=== PATIENT | female | born 1980 | race Caucasian/White ===

== ENCOUNTER 2019-07-19 11:15 | Outpatient (RCR) | payer OTHER, SELFPAY ==
--- NOTE | 2019-05-30 15:43 | PTOPEVAL ---
PHYSICAL THERAPY PLAN OF CARE UPDATE AND PROGRESS REPORT Thank you for referring this patient to [facility]. Fidelina will continue to be seen 1x/week for 4-6weeks as needed. Please review, sign, date and return this plan of care CARA. I agree with and certify that the following plan of care is medically necessary. Referring Physician Date Attending Provider: Laury Markham, MD Diagnosis right thoracic back pain Subjective Information Fidelina continues to feel as Query Text:As Reported By Patient/ though things are changing; Family she states she will feel stabbing in that spot in her back (near T9), but that it is more often a global heaviness across her back. She spent the last week doing prepartation work for the holidays and cleaning and she has been slightly more sore. She does feel as though there is improvement overall. Right Back Reported Pain Level 4 not so stabbing pain, but heavy feeling all across back Pain Score Pain Score 4: Self Report Scapular/Shoulder Bilateral Shoulder Flexion Strength 4+ Good + Shoulder Abduction Strength 4+ Good + Shoulder Medial Rotation Strength 5 Normal Shoulder Lateral Rotation Strength 5 Normal Posture Posture Evaluation View Posterior Shoulder Posture (R) Forward Scapula Posture (R) Depressed,(R) Tipped Arm Posture (L) Neutral,(R) Neutral Palpation spasms and trigger points to right posterior serratus; diaphragm spasms right greater than left; mild tightness to left scalenes especially at C1 ,2; Shoulder Special Tests Upper Limb Tension Test: Radial Negative Left,Negative Right Upper Limb Tension Test:Median Negative Left,Positive Right Upper Limb Tension Test:Ulnar Negative Left,Negative Right Shoulder Special Tests Comments unable to rule out long thoracic nerve stretch as a positive Clinical Summary Fidelina continues to demonstrate progress and change toward optimal function. Her periscapular and rotator cuff strength is improving and her thoracic mobility is improving . She continues to demonstrate
--- NOTE | 2019-06-14 17:22 | PTOPEVAL ---
PHYSICAL THERAPY PLAN OF CARE UPDATE AND PROGRESS REPORT Thank you for referring this patient to [facility]. Please review, sign, date and return this plan of care CARA. I agree with and certify that the following plan of care is medically necessary. Referring Physician Date Attending Provider: Laury Markham, MD Problem Diagnosis right thoracic back pain Subjective Information Fidelina continues to feel as Query Text:As Reported By Patient/ though things are changing; Family she states she will feel stabbing in that spot in her back (near T9), but that it is more often a global heaviness across her back. She spent the last week doing prepartation work for the holidays and cleaning and she has been slightly more sore. She does feel as though there is improvement overall. is enjoying the K-tape to support right shoulder Pain Scale Used Numeric (1 - 10) Self Report Pain Assessment Right Back Reported Pain Level 5 Pain Description Stabbing Additional Pain Comments really stabbing today. K-tape still seems to help Pain Score Pain Score 5: Self Report Additional Pain Score Comments felt really well most of the week with k-tape; took tape off on Wednesday (06/11/19) and since then the pain has been creeping back. Scapular/Shoulder Bilateral Shoulder Flexion Strength 4+ Good + Shoulder Abduction Strength 4+ Good + Shoulder Medial Rotation Strength 5 Normal Shoulder Lateral Rotation Strength 5 Normal Muscle Length Testing Scalenes Anterior Muscle Length (R) WFL,(L) Mild Tightness Query Text: Latissmus Dorsi Muscle Length (R) Moderate Tightness,(L) Moderate Tightness Upper Trapezius Muscle Length (R) Mild Tightness,(L) Mild Tightness Levaetor Scapulae Muscle Length (R) Mild Tightness Pectoralis Major- Sternal Fibers Muscle (L) Moderate Tightness,(R) Length Severe Tightness Pectoralis Minor Muscle Length (R) Moderate Tightness,(L) Moderate Tightness Palpation Assessment Palpation Palpation spasms and trigger points to right posterior serratus; diaphragm spasms right greater
--- NOTE | 2019-07-19 17:02 | PTOPEVAL ---
PHYSICAL THERAPY PLAN OF CARE UPDATE AND PROGRESS REPORT Thank you for referring this patient to [facility]. I recommend Fidelina continue PT 1x/week for 4-8 weeks. Please review, sign, date and return this plan of care CARA. I agree with and certify that the following plan of care is medically necessary. Referring Physician Date Attending Provider: Laury Markham, Re-evaluation Evaluation Information Problem Diagnosis right thoracic back pain Additional Evaluation Detail assessing movement of shoulder with K-tape to correct scapular posture improves overall movement quality and decreases pain in scapular region during movement. Subjective Information Fidelina continues to feel as Query Text:As Reported By Patient/ though things are changing; Family she states she will feel stabbing in that spot in her back (near T9), but that it is more often a global heaviness across her back. Continues enjoying the K-tape to support right shoulder Pain Assessment Right Back Reported Pain Level 2 Pain Description Stabbing Pain Frequency Chronic,Continuous Pain Score Pain Score 2: Self Report Additional Pain Score Comments just came from chiropractor: he adjusted right first rib and T6,7 Cervical and Lumbar ROM Cervical ROM Reason Not Measured WNL/Left,WNL/Right Upper Extremity Range of Motion General Upper Extremity Range of Motion Gross Upper Extremity Range of Motion right shoulder INTERNAL Comments rotation reaching behind back restricted compared to left Upper Extremity Muscle Strength Testing Scapular/Shoulder Bilateral Scapular Retraction - Middle Trapezius 3+ Fair + Scapular Retraction - Lower Trapezius 3- Fair - Scapular Strength Comments patient is able to perform independent scapular motion, but cannot perform against gravity when including glenohumeral motion - requires strong verbal and tactile cues Shoulder Flexion Strength 4+ Good + Shoulder Abduction Strength 4+ Good + Shoulder Medial Rotation Strength 5 Normal Shoulder Lateral Rotation Strength 5 Normal Posture Standing Position Posture Evaluation View Posterior Shoulder Posture (R) Forward Scapula Posture (R) Depressed,(R) Tipped
--- NOTE | 2019-07-25 12:49 | PCPTNOTE ---
Patient's appointment was cancelled today as insurance authorization was not received.
--- NOTE | 2019-07-31 11:46 | PCPTNOTE ---
Patient not treated today due to lack of insurance authorization. We discussed how to continue HEP as already prescribed and discussed next steps for self care. Patient will be discharged at this time.
== END 2019-07-19 23:59 | disposition home or self-care (01) ==
LOC: ANHPT 11:15
PROVIDERS: PCP Family Medicine; Visit Provider Family Medicine
DX: M54.9 Dorsalgia, unspecified (principal)
CPT/HCPCS: 97110; 97140

== ENCOUNTER 2019-11-08 13:45 | Outpatient (RCR) | payer OTHER, SELFPAY ==
--- NOTE | 2019-08-16 13:47 | PTOPEVAL ---
PHYSICAL THERAPY EVALUATION AND PLAN OF CARE Thank you for referring this patient to [facility]. Fidelina will be seen 1x/week for 4-6weeks in skilled PT. Please review, sign, date and return this plan of care CARA. I agree with and certify that the following plan of care is medically necessary. Referring Physician Date Attending Provider: Nova Hendrix, PA Evaluation Information Diagnosis right shoulder pain/scapular pain Cause 14 years Subjective Information Fidelina is here today following Query Text:As Reported By Patient/ 14 years of shoulder/scapular Family pain following an instant pain that initiated during the c- section of her child. She would experience increasd pain in right shoulder blade area with overhead arm movements and her hand would go numb. She would have very severe tender to touch and the by the end of the day she could not use her arm. has a difficult time reaching to the top of a closet because the shoulder will not extend fully. Right Scapula Reported Pain Level 4 Pain Frequency Chronic,Continuous Cervical ROM Cervical Flexion (0-60) 55 Query Text:Active in Degrees Cervical Extension (0-70) 55 Query Text:Active in Degrees Cervical ROM Comments chin to chest: 1.5inches from chin on chest; rotation is WNL , but left rotation indicates tightness over right upper trap Scapular/ Shoulder Range of Motion Right Shoulder Medial Rotation - Active scapular angle contralateral Shoulder Lateral Rotation - Active C7 Left Shoulder Medial Rotation - Active T4 Shoulder Lateral Rotation - Active T3 Scapular/Shoulder Right Shoulder Elevation - Upper Trapezius 4+ Good + Scapular Retraction - Rhomboid 4- Good - Scapular Retraction - Middle Trapezius 4- Good - Scapular Retraction - Lower Trapezius 3- Fair - Scapular Protraction - Serratus 3- Fair - Shoulder Flexion Strength 4+ Good + Shoulder Abduction Strength 4- Good - Shoulder Medial Rotation Strength 5 Normal Shoulder Lateral Rotation Strength 4- Good - Shoulder Strength Comments external rotation, flexion, and abduction illicit her normal pain near scapula middle deltoid: 4+/5 but
--- NOTE | 2019-10-03 09:22 | PCPTNOTE ---
Patient called & re-scheduled appointment this date due to COVID-19 precautions. She was now scheduled for October.
--- NOTE | 2019-10-12 15:20 | PTOPEVAL ---
PHYSICAL THERAPY PLAN OF CARE UPDATE AND PROGRESS REPORT Thank you for referring Fidelina Castaneda to [facility]. I recommend Fidelina continue PT 1x/week for 4-6 weeks. Please review, sign, date and return this plan of care CARA. I agree with and certify that the following plan of care is medically necessary. Referring Physician Date Attending Provider: Nova Hendrix, PA Re-evaluation Diagnosis right shoulder pain/scapular pain Cause 14 years Additional Evaluation Detail Fidelina is here today following 14 years of shoulder/scapular pain following an instant pain that initiated during the c- section of her child. She would experience increasd pain in right shoulder blade area with overhead arm movements and her hand would go numb. She would have very severe tender to touch and the by the end of the day she could not use her arm. has a difficult time reaching to the top of a closet because the shoulder will not extend fully. Subjective Information Fidelina is noting today that Query Text:As Reported By Patient/ while there continue to be Family many chores or activities that she avoids or modifies, she is more able to participate in these activities than she used to do, i.e. she would not clean the floors because of pain and now she is able to clean the floors if she takes breaks. Pain Assessment Timing of Pain Assessment Timing of Pain Assessment Pre-Treatment Pain Scale Pain Scale Used Numeric (1 - 10) Self Report Pain Assessment Right Scapula Reported Pain Level 2 Pain Description Tightness Pain Frequency Intermittent Pain Aggravating Factors ADL's Pain Behaviors Grimacing,Guarding Interventions Used By Clinicians Exercise,Manual Therapy Techniques Pain Score Pain Score 2: Self Report Additional Pain Score Comments today is a normal day Cervical and Lumbar ROM Cervical ROM Cervical Flexion (0-60) 55 Query Text:Active in Degrees Cervical Extension (0-70) 55 Query Text:Active in Degrees C
--- NOTE | 2019-11-15 15:03 | PCPTNOTE ---
This treatment is being continued on visit number [id number]. Please see documentation on both accounts to view progress. Completed interventions, outcomes, and problems have been marked as Inactive to facilitate the copying of the Care plan routine for recurring accounts.
== END 2019-11-14 23:59 | disposition home or self-care (01) ==
LOC: ANHPT 13:45
PROVIDERS: PCP Family Medicine; Visit Provider Physician Assistant
DX: M25.519 Pain in unspecified shoulder (principal)
CPT/HCPCS: 97110; 97140; 97161

== ENCOUNTER 2020-01-25 12:30 | Outpatient (RCR) | payer OTHER, SELFPAY ==
--- NOTE | 2019-11-15 15:04 | PCPTNOTE ---
The treatment documented on this account is a continuation of the treatment documented on visit number [id number]. Please see documentation on both accounts to view progress. The Plan of Care has been transitioned and updated within the new V#. I have addressed and agree with the discipline specific Problems, Interventions, and Goals for the current certification period. Completed interventions, outcomes, and problems have been marked as Inactive to facilitate the copying of the Care plan routine for recurring accounts.
--- NOTE | 2019-12-13 15:20 | PTOPEVAL ---
PHYSICAL THERAPY PLAN OF CARE UPDATE Thank you for referring Fidelina Castaneda to [facility]. I recommend continuing physical therapy 1x/every other week for 4-8weeks. Please review, sign, date and return this plan of care CARA. I agree with and certify that the following plan of care is medically necessary. Referring Physician Date Admitting Provider: Attending Provider: Nova Hendrix, PA Referring Provider: *PT Outpatient Evaluation Start: 11/15/19 15:04 Freq: Status: Active Protocol: Document 12/12/19 11:00 RADU (Rec: 12/13/19 15:16 RADU [id number]) Therapy Assessment Status Assessment Status Assessment Status Re-evaluation Evaluation Information Problem Diagnosis right shoulder pain/scapular pain Cause 14 years Additional Evaluation Detail Fidelina is here today following 14 years of shoulder/scapular pain following an instant pain that initiated during the c- section of her child. She would experience increased pain in right shoulder blade area with overhead arm movements and her hand would go numb.She would have very severe tender to touch and the by the end of the day she could not use her arm. has a difficult time reaching to the top of a closet because the shoulder will not extend fully. Subjective Information Today Fidelina is reporting that Query Text:As Reported By Patient/ she feels as though there is Family significant progress. She realizes that there are many activities that she is able to tolerate for longer periods of time and does not have as severe symptoms after the activity. Continues to report episodes of functionally limiting pain and numbness in right hand, i.e. when doing dishes. Pain Scale Used Numeric (1 - 10) Right Spine, Thoracic Reported Pain Level 2 Gross Upper Extremity Range of Motion generally WFL; decreased right Comments shoulder flexion due to shortened latissimus danyelle, continues to improve; reaching behind head ER: symmetrical to left; reaching behind back IR: decreased right scapular winging compared to left -- possibly tight/short levator scap and rhomboids minor Upper Extremity Muscle Strength Testing Scapular/Shoulder Right Shoulder Flexion Strength 4+ Good + Shoulder Extension Strength 5 Normal Shoulder Abduction Strength 4+ Good + Shoulder M
--- NOTE | 2020-02-15 13:21 | PCPTNOTE ---
This treatment is being continued on visit number [id number]. Please see documentation on both accounts to view progress. Completed interventions, outcomes, and problems have been marked as Inactive to facilitate the copying of the Care plan routine for recurring accounts.
== END 2020-02-14 23:59 | disposition home or self-care (01) ==
LOC: ANHPT 12:30
PROVIDERS: PCP Family Medicine; Visit Provider Physician Assistant
DX: M25.519 Pain in unspecified shoulder (principal)
CPT/HCPCS: 97110; 97140

== ENCOUNTER 2020-05-14 12:30 | Outpatient (RCR) | payer OTHER, SELFPAY ==
--- NOTE | 2020-02-15 13:21 | PCPTNOTE ---
The treatment documented on this account is a continuation of the treatment documented on visit number [id number]. Please see documentation on both accounts to view progress. The Plan of Care has been transitioned and updated within the new V#. I have addressed and agree with the discipline specific Problems, Interventions, and Goals for the current certification period. Completed interventions, outcomes, and problems have been marked as Inactive to facilitate the copying of the Care plan routine for recurring accounts.
--- NOTE | 2020-02-16 13:56 | PTOPEVAL ---
PHYSICAL THERAPY PROGRESS REPORT Thank you for referring Fidelina Castaneda to [facility].? The patient is scheduled to be seen for therapy?1x/week every 2-3 weeks for 8weeks. Please review, sign, date and return this plan of care CARA. I agree with and certify that the following plan of care is medically necessary. Referring Physician Date Attending Provider: Nova Hendrix, PA Progress Diagnosis right shoulder pain/scapular pain Cause 14 years Additional Evaluation Detail Fidelina is here today following 14 years of shoulder/scapular pain following an instant pain that initiated during the c- section of her child. She would experience increased pain in right shoulder blade area with overhead arm movements and her hand would go numb. She would have very severe tender to touch and the by the end of the day she could not use her arm. has a difficult time reaching to the top of a closet because the shoulder will not extend fully. Subjective Information Today Fidelina reports increased Query Text:As Reported By Patient/ symptoms after taking care of Family a problem in her washing machine (had to reach forward into the washing machine for prolonged periods). She tried to take breaks. Noted almost immediately after increased pain in right base of neck and upper shoulder region (as opposed to near the scapula). Chiropractor adjusted 1st rib on right. There was an improvement of symptoms after adjustment, but continues to have pain and sensitivity and decreased cervical and shoulder ROM. Prior to this incident, Fidelina notes she was doing really well and feeling really good with her exercises. Pain Assessment Timing of Pain Assessment Timing of Pain Assessment Pre-Treatment Pain Scale Pain Scale Used Numeric (1 - 10) Self Report Pain Assessment Right Shoulder(s) Reported Pain Level 4 Pain Description Aching Interventions Used By Clinicians Mobilization,Manual Therapy Techniques,Myofascial Release Additional Pain Comments my arm is not numb but does feel weird. Pain Score Pain Score 4: Self Report Cervical and Lumbar ROM Cervical ROM Cervical Flexion (0-60) 55 Query Text:Active in Degrees Cervical Extension (0-70) 55 Query Text:Active in Degrees
--- NOTE | 2020-04-24 13:28 | PTOPEVAL ---
PHYSICAL THERAPY PLAN OF CARE UPDATE AND PROGRESS REPORT Thank you for referring Fidelina Castaneda to [facility].? The patient is scheduled to be seen for therapy? 1x/week every 2-3 weeks for 8 weeks total. Please review, sign, date and return this plan of care CARA. I agree with and certify that the following plan of care is medically necessary. Referring Physician Date Attending Provider: Nova Hendrix, PA Progress Diagnosis right shoulder pain/scapular pain Cause 15 years Additional Evaluation Detail Fidelina is here today following 15 years of shoulder/scapular pain following an instant pain that initiated during the c- section of her child. She would experience increasd pain in right shoulder blade area with overhead arm movements and her hand would go numb. She would have very severe tender to touch and the by the end of the day she could not use her arm. has a difficult time reaching to the top of a closet because the shoulder will not extend fully. Subjective Information Fidelina reports that over the last 3 weeks she was doing very well until Wednesday (04/22). She was folding laundry while sitting and was doing some trunk twisting. Her back did not bother her during the task, but later into the evening she felt a severe stabbing pain higher in her back than normal. She attempted to do all appropriate self management measures including ice/heat, thoracic extension over a towel, therapy ball, and tennis ball all without success. She saw her chiropractor Wednesday morning and he noted that instead of T6-7 rotated, T4-5 were kissing {T4 extended on top of T5}. She was adjusted with relief and is doing well today. Fidelina has been doing all of her exercises again since she increased symptoms by cleaning her washing machine, but she is hoping to drop back down to half one day and half the next. I agree and encourage this plan. I encourage her to experiment with combinations of exercises to determine what will work best for her. She was using a sean method ball to assist with soft tissue release of right shoulder including subscapularis and latissimus dorsi with great success. Self Report Pain Assessment Right Shoulder(s) Reported Pain Level 1 Pain Description Aching,Sharp Pain Score Pain Score 1: Self Report Additional Pain Score Comments . Interventions Used Interventions Used By Clinicians Exercise,Manual Therapy Techniques Pain Relief Interventions Used By Exercise,Heat Patient Cervical and Lumbar ROM Cervical ROM Cervical Flexion (0-60) 55 Query Text:Active in Degrees
--- NOTE | 2020-05-15 15:53 | PCPTNOTE ---
This treatment is being continued on visit number [id number]. Please see documentation on both accounts to view progress. Completed interventions, outcomes, and problems have been marked as Inactive to facilitate the copying of the Care plan routine for recurring accounts.
== END 2020-05-15 09:13 | disposition home or self-care (01) ==
LOC: ANHPT 12:30
PROVIDERS: PCP Family Medicine; Visit Provider Physician Assistant
DX: M25.519 Pain in unspecified shoulder (principal)
CPT/HCPCS: 97110; 97140

== ENCOUNTER 2020-08-13 12:30 | Outpatient (RCR) | payer OTHER, SELFPAY ==
--- NOTE | 2020-05-15 15:53 | PCPTNOTE ---
The treatment documented on this account is a continuation of the treatment documented on visit number [id number]. Please see documentation on both accounts to view progress. The Plan of Care has been transitioned and updated within the new V#. I have addressed and agree with the discipline specific Problems, Interventions, and Goals for the current certification period. Completed interventions, outcomes, and problems have been marked as Inactive to facilitate the copying of the Care plan routine for recurring accounts.
--- NOTE | 2020-08-13 13:26 | PTOPEVAL ---
PHYSICAL THERAPY DISCHARGE NOTE Thank you for referring Fidelina Castaneda to [facility].? Please review, sign, date and return this plan of care CARA. I agree with and certify that the following plan of care is medically necessary. Referring Physician Date Attending Provider: Nova Hendrix, PA Discharge Diagnosis right shoulder pain/scapular pain Cause 15 years Subjective Information After last appointment, Fidelina Query Text:As Reported By Patient/ is very excited to report that Family she feels like she is successfully impacting her symptoms with home exercise program and stretches. She is very diligent with stretches and exercises and continues to see the chiropractor. She does continue to have symptoms in the right shoulder place region, but feels like it is much more manageable and she is able to alter how she performs tasks at home to improve the symptoms. Cervical and Lumbar ROM Cervical ROM Cervical Flexion (0-60) 55 Query Text:Active in Degrees Cervical Extension (0-70) 55 Query Text:Active in Degrees Cervical ROM Comments cervical ROM: WNL and non- painful. She does have a history of bulging disc in this region; this tightness limited right rotation of cervical spine Upper Extremity Range of Motion General Upper Extremity Range of Motion Gross Upper Extremity Range of Motion WNL and symetrical Comments Upper Extremity Muscle Strength Testing Scapular/Shoulder Bilateral Scapular Retraction - Middle Trapezius 4 Good Scapular Retraction - Lower Trapezius 4 Good Shoulder Flexion Strength 5 Normal Shoulder Extension Strength 5 Normal Shoulder Medial Rotation Strength 5 Normal Shoulder Lateral Rotation Strength 5 Normal Muscle Length Testing Comments overall normal posture and muscle length throughout with some asymmetries at scapular region and in low back/lats; however, very mild and managed with HEP Palpation continues to be quite tender to touch right paraspinals and ribs at T6-9levels but
== END 2020-08-14 07:42 | disposition home or self-care (01) ==
LOC: ANHPT 12:30
PROVIDERS: PCP Family Medicine; Visit Provider Physician Assistant
DX: M25.519 Pain in unspecified shoulder (principal)
CPT/HCPCS: 97110; 97140

== ENCOUNTER 2022-10-18 08:43 | Emergency (ER) | payer OTHER, SELFPAY ==
--- NOTE | ~2022-10-18 | XR_ITS ---
EXAMINATION: XR chest 1V portable INDICATION: Chest pain TECHNIQUE: Portable AP chest at 0917 hours COMPARISON: None available FINDINGS: The lungs are free of acute opacities. No pleural effusion or pneumothorax. The cardiomedia stinal silhouette is normal. The visualized bones and soft tissues are unremarkable. IMPRESSION: 1. No acute cardiopulmonary abnormality. Reviewed, dictated and finalized at location A.
[2022-10-18 08:45] VITALS: BP 115/65; PULSE 69; RESP 19; TEMP 36.3; O2SAT 100
--- NOTE | 2022-10-18 08:47 | ECG_ITS ---
Measurements Intervals [place] Rate: 69 P: 51 [place]: 152 QRS: 55 QRSD: 94 T: 46 QT: 384 QTc: 414 Interpretive Statements SINUS RHYTHM NO PREVIOUS ECG AVAILABLE FOR COMPARISON Electronically Signed On 10-18-2022 9:27:14 CDT by Jena Demarco M.D.
--- NOTE | 2022-10-18 09:00 | ED.CHESTPAIN ---
HPI - Chest Pain General Chief Complaint: Chest Pain <Bal Dominguez PA-C - Last Filed: 10/18/22 10:44> Stated Complaint: left arm and chest pain <TIFFANY Frank Last Filed: 10/18/22 10:44> Time Seen by Provider: 10/18/22 08:57 <Bal Dominguez PA-C - Last Filed: 10/18/22 10:44> Source: patient <TIFFANY Frank Last Filed: 10/18/22 10:44> Mode of arrival: ambulatory <TIFFANY Frank Last Filed: 10/18/22 10:44> Limitations: no limitations <TIFFANY Frank Last Filed: 10/18/22 10:44> History of Present Illness HPI narrative: This is a 42-year-old female with no pertinent past medical history who presents to the ED with chief complaint of left arm pain and left chest pain beginning around 430 this morning. She states it woke her up from her sleep. Denies any injuries. Denies shortness of breath, dizziness, nausea, sweats. States she has had pleurisy in the past and feels that it may be somewhat similar. Patient reports the pain is at a 2 out of 10. There does seem to be some worsening with deep breathing. She feels that the arm pain and chest pain are separate, chest pain does not radiate. She states the arm pain stays in the lateral left arm. Denies fevers, chills, cough, abdominal pain, LOC, palpitations, leg swelling. Reports history of a murmur but has been told there is nothing to do about it at this point. <Bal Dominguez PA-C - Last Filed: 10/18/22 10:44> Related Data Allergies/Adverse Reactions: Allergies Allergy/AdvReac Type Severity Reaction Status Date / Time No Known Allergies Allergy Verified 10/18/22 08:44 <TIFFANY Frank Last Filed: 10/18/22 10:44> Review of Systems Review of Systems: CONSTITUTIONAL: Denies fever, chills, or sweats. EYES: Denies visual changes, redness, or discharge. ENT: Denies rhinorrhea, congestion, sore throat, or otalgia. CARDIOVASCULAR: See HPI RESPIRATORY: Denies cough or dyspnea. GASTROINTESTINAL: See HPI GENITOURINARY: Denies dysuria or hematuria. SKIN: Denies rash or itching. MUSCULOSKELETAL: Denies back pain, joint pain, or myalgia. NEUROLOGIC: Denies headache, numbness, dizziness, or weakness. PSYCHIATRIC: Denies anxiety or depression. <Bal Dominguez PA-C - Last Filed: 10/18/22 10:44> Exam Narrative: GENERAL: Well-appearing, well-nourished, and in no acute distress. HEAD: Normocephalic, atraumatic. EYES: PERRLA and EOMI. ENT: Nares clear, no rhinorrhea or epistaxis. Mucous membranes moist. Oropharynx without tonsillar hypertrophy exudate or other lesions. NECK: Supple. No adenopathy or masses. CHEST: No respiratory distress. Clear to auscultation. No wheezes rales or rhonchi. No tenderness. HEART: Regular rate and rhythm. No murmur heard. Normal peripheral pulses. ABDOMEN: Soft, nontender, nondistended, normal active bowel sounds. EXTREMITIES: Normal range of motion. No edema. SKIN: Warm, dry, no rash. NEURO: Alert and oriented x3. No focal deficits. PSYCH: Normal mood and affect. <Bal Dominguez PA-C - Last Filed: 10/18/22 10:44> Course CLIN ASST/PA Physician Supervision This visit was performed by both a physician and an APC. I performed all aspects of the MDM as documented. <Cory Reinoso MD - Last Filed: 10/18/22 18:14> Vital Signs Vital signs: Vital Signs Temperature 97.4 F L 10/18/22 08:45 Pulse Rate 69 10/18/22 08:45 Respiratory Rate 19 10/18/22 08:45 Blood Pressure 115/65 10/18/22 08:45 Pulse Oximetry 100 10/18/22 08:45 Oxygen Delivery Room Air 10/18/22 08:45 Temperature 97.4 F L 10/18/22 08:45 Pulse Rate 62 10/18/22 11:00 Respiratory Rate 16 10/18/22 11:00 Blood Pressure 105/57 L 10/18/22 11:00 Pulse Oximetry 99 10/18/22 11:00 Oxygen Delivery Room Air 10/18/22 08:45 <Bal Dominguez PA-C - Last Filed: 10/18/22 10:44> Vital Signs Temperature 97.4 F L 10/18/22 08:45 Pulse Rate 69 10/18/22 08:45 Respirator
[2022-10-18 09:36] LABS: Basophils Percent Auto 0.9 % (0.2-1.2); Eosinophils Absolute Auto 0.1 K/mm3 (0-0.3); Eosinophils Percent Auto 2.9 % (0-4.4); Hematocrit 35.8 % (37.0-47.0); Hemoglobin 11.8 g/dL (12.0-15.0); Immature Granulocyte Absolute 0.01 K/mm3 (0.00-0.031); Immature Granulocyte Percent A 0.2 % (0-0.5); Lymphocytes Absolute Auto 1.09 K/mm3 (0.9-3.2); Lymphocytes Percent Auto 24.2 % (18.3-44.2); Mean Corpuscular Hemoglobin 29.9 pg (26-34); Mean Corpuscular Volume 90.6 fl (80-100); Mean Platelet Volume 8.9 fl (7.4-10.4); Monocytes Absolute Auto 0.4 K/mm3 (0.1-0.6); Monocytes Percent Auto 8.9 % (2.6-8.5); Neutrophils Absolute Auto 2.8 K/mm3 (1.3-6.7); Neutrophils Percent Auto 62.9 % (45.5-73.1); Platelet Count Result 274 k/mm3 (150-375); Red Blood Count 3.95 M/mm3 (4.2-5.4); Red Cell Distribution Width 11.8 % (11.5-14.5); White Blood Count 4.5 K/mm3 (4.5-10.0)
[2022-10-18 09:48] LABS: Alanine Aminotransferase 27 U/L (6-35); Albumin Level 4.1 g/dL (3.5-5.1); Alkaline Phosphatase 52 U/L (38-126); Anion Gap 4 mmol/L (8-16); Aspartate Amino Transferase 24 U/L (14-36); Bilirubin,Total 0.4 mg/dL (0.2-1.3); Blood Urea Nitrogen 7 mg/dL (7-17); Calcium 8.8 mg/dL (8.4-10.2); Carbon Dioxide 28 mmol/L (22-30); Chloride 107 mmol/L (98-107); Estimated CRCL calculation 81 ml/min; Estimated Glomerular Filt Rate > 60; Glucose 72 mg/dL (65-110); Potassium 4.2 mmol/L (3.4-5.0); Sodium 139 mmol/L (137-145)
[2022-10-18 10:00] LABS: Troponin I < 0.012 ng/mL (0.000-0.034)
[2022-10-18] MEDS: ASPIRIN 81 MG CHEWABLE TABLET 324 MG PO (10:14)
[2022-10-18 11:00] VITALS: BP 105/57; PULSE 62; RESP 16; O2SAT 99
== END 2022-10-18 11:01 | disposition home or self-care (01) ==
PROVIDERS: Emergency Provider Physician Assistant; PCP Family Medicine
DX: R10.84 Generalized abdominal pain (principal); F32.A Depression, unspecified; E11.9 Type 2 diabetes mellitus without complications
CPT/HCPCS: 36415; 71045; 80053; 84484; 85025; 93005; 99284; A9270

== ENCOUNTER 2023-11-25 13:32 | Outpatient (CLI) | payer OTHER, SELFPAY ==
--- NOTE | ~2023-11-25 | MMUS_ITS ---
EXAMINATION: MM diagnostic sonya BI w marycarmen, US breast BI complete HISTORY: Palpable bilateral breast abnormalities. TECHNIQUE: Additional 3-D tomosynthesis images of the breasts were performed and synthetic 2-D images were generated. CAD analysis was submitted and interpreted. High resolution bilateral complete breas t ultrasound was performed. COMPARISON: Comparison to multiple prior studies sequentially, with oldest reviewed study dated 08/22. BREAST PARENCHYMAL COMPOSITION: Dense: The breasts are extremely dense, which lowers the sensitivity of mammography. FINDINGS: MAMMOGRAPHIC FINDINGS: There are multiple masses in both breasts which are partially obscured by fibroglandular tissue. ULTRASOUND: Complete bilateral US of all 4 quadrants of the breasts and retroareolar region was reviewed. Multipl e bilateral simple cyst of the breast corresponding to the mammographic findings. No suspicious sonog raphic abnormalities to suggest malignancy. IMPRESSION: 1. No evidence for malignancy in either breast. 2. Routine yearly screening mammogram and regular clinical breast examination are recommended. BI-RADS Category 2: Benign finding(s). Reviewed, dictated and finalized at location A. IMPRESSION: 1. No evidence for malignancy in either breast. 2. Routine yearly screening mammogram and regular clinical breast examination a re recommended. BI-RADS Category 2: Benign finding(s).
== END 2023-11-25 13:33 | disposition home or self-care (01) ==
PROVIDERS: PCP Family Medicine; Visit Provider Obstetrics & Gynecology Gynecology
DX: N63.10 Unspecified lump in the right breast, unspecified quadrant (principal); N63.20 Unspecified lump in the left breast, unspecified quadrant
CPT/HCPCS: 76641; 77062; 77066; G0279

== ENCOUNTER 2024-10-17 16:56 | Outpatient (CLI) | payer OTHER, SELFPAY ==
--- NOTE | ~2024-10-17 | US_ITS ---
EXAMINATION: US soft tissue head and neck DATE: 10/17/2024 17:47 INDICATION: Cervical lymphadenopathy with palpable lump. TECHNIQUE: Multiple grayscale and Doppler ultrasound images of the region of the palpable abnormality posterior to the right ear were obtained. COMPARISON: None FINDINGS: There is a 4-5 mm hypoechoic nodule at the right retroauricular region of concern with increased vasc ular flow on color Doppler. There is located within echogenic tissue with fine granularity with the a ppearance in thickness at this location suggesting this represents the parotid gland. IMPRESSION: 1. 4-5 mm vascular hypoechoic nodule at the region of concern, likely within the posterior right paro tid gland, which could represent either a small reactive lymph node or parotid neoplasm which could b e either benign or malignant. Could consider ultrasound-guided fine-needle aspiration for pathologic correlation. Reviewed, dictated and finalized at location A. IMPRESSION: 1. 4-5 mm vascular hypoechoic nodule at the region of concern, likely within th e posterior right parotid gland, which could represent either a small reactive lymph node or parotid neoplasm which could be either benign or malignant. Could consider ultrasound-guided fine-needle aspiration for pathologic correlation.
--- OUTSIDE RECORDS SUMMARY | 2024-10-17 17:07 | XMS_ITS | Encounter Summary ---
Author Organization [facility] Address [address] [place] [address] Care Team Providers Care S3B Multi Sensor Operator Name Role Phone Unavailable Primary Care Provider Unavailabl e Reason for Visit * Diagnostic Imaging (Routine) - Closed Specialty Diagnoses / Procedures Referred By Contac t Referred To Contact Procedures Breast Imaging US Outside Reference Tricia Barreto MD PhD [phone] [place] [address] Phone: tel: fax: Referral ID Status Reason Start Date Expiration Date Visits Re quested Visits Authorized [id number] Closed 05/25/2022 06/24/2023 1 1 Encounter Details Date Type Department Care Team (Late st Contact Info) Description 06/07/2018 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 Hospital Encounter [facility] [address] [place] [id number] Social History Tobacco Use Types Packs/Day Years Used Date Smoking Tobacco: Never Smokeless Tobacco: Never Alcohol Use Standard Drinks/Week Comments No 0 (1 standard drink = 0.6 oz pur e alcohol) PHQ-2 Answer Date Recorded PHQ-2 Total Score (If total score is 3 or more points, staff should administer the PHQ-9) 0 10/06/2024 Comments Unknown Sex and Gender Information Value Date Recorded Sex Assigned at Not on file Legal Sex Female 1:13 AM 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 Author CCM Chronic Pain Care Plan Chronic Care Management Michael William, RN Note: Problem: Chronic Pain Goals: 1. Minimize further functional decline 2. Maximize quality of life 3. Control pain Strategies: - Activity/exercise program recommendation - Conservative stepwise pain medicine strategy with multi-disciplinary approach - Recommend healthy lifestyle strategies and compensatory methods as needed documented as of this encounter Procedures Procedure Name Priority Date/Time Associated Diagnosis Comments BREAST IMAGING US OUTSIDE REFERENCE Routine 06/07/2018 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 documented in this encounter Results * Breast Imaging US Outside Reference (06/07/2018 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) Impressions [facility] - 05/25/2022 1:08 PM BLOCK MAKING MACHINE OPERATOR These images are for Reference purposes only and have not been reviewed by [facility]. There will be no report generated by a [facility] Radiologist. Narrative [facility] - 05/25/2022 1:08 PM BLOCK MAKING MACHINE OPERATOR EXAMINATION: Images For Reference Purposes Only us Tricia Barreto MD PhD IMG MAMMO PROCEDURES Final Result [facility] documented in this encounter Visit Diagnoses Not on filedocumented in this encounter
--- OUTSIDE RECORDS SUMMARY | 2024-10-17 17:07 | XMS_ITS | Referral Summary ---
Author Organization [facility] Address [address] [place] [address] Care Team Providers Care Client Account Manager Name Role Phone Cony Renee MD Unavailable [phone] Kacey Carter NP Primary Care Provider [phone] Jesus Shetty MD Unavailable [phone] Encounters Date Type Department Care Team Description 10/06/2024 1:30 PM CDT Office Visit [facility] at [address] [address] Kacey Carter NP Colon cancer screening (Primary Dx); Vitamin D deficiency; Cardiac murmur; Wellness examination; Fabiola-menopause; Elevated LDL cholesterol level; Fatigue, unspecified type; Screening for thyroid disorder; Family history of thyroid disease; Neurogenic thoracic outlet syndrome; Situational anxiety; Dysmenorrhea; Cervical adenopathy; Polyarthralgia; History of gestational diabetes; Seasonal allergies; Mass of upper outer quadrant of right breast from Last 3 Months Allergies No known active allergies Medications multivitamin capsule Take 1 capsule by mouth daily Active acidophilus-pec tin, citrus 100 million cell-10 mg capsule Take by mouth Active loratadine (CLARITIN) 10 mg tablet Take 1 tablet (10 mg total) by mouth daily Active ergocalciferol (VITAMIN D) 50,000 unit capsule Take 1 capsule (50,000 Units total) by mouth once a week Active ALPRAZolam (XANAX) 0.5 mg tabletIndicatio ns:Situational anxiety Take 30-45 minutes before flight for anxiety. 10 tablet 1 10/06/2024 Active Active Problems Problem Noted Date Diagnosed Date Wellness examination 10/06/2024 Assessment & Plan (10/06/2024 4:59 PM CDT): Routine health maintenance objectives discussed and orders placed for any outstanding screening studies. Physical exam performed as above. Routine annual labs obtained and will be reviewed with patient when results available. Encouraged regular physical activity--moderate activity for a total of 150 minutes per week over 3-5 days. Encouraged healthy diet with regular fresh fruits and vegetables limited in processed carbohydrates. Alcohol use Nicotine use Depression screening Orders: CBC with auto differential; Future Comprehensive metabolic panel; Future Lipid panel; Future Elevated LDL cholesterol level 10/06/2024 Assessment & Plan (10/06/2024 4:59 PM CDT): Repeat levels pending. Orders: Lipid panel; Future Fabiola-menopause 10/06/2024 Assessment & Plan (10/06/2024 4:59 PM CDT): Orders: Estradiol; Future Follicle stimulating hormone; Future LH; Future Progesterone; Future Situational anxiety 10/06/2024 Assessment & Plan (10/06/2024 4:59 PM CDT): Related to flying. Orders: ALPRAZolam (XANAX) 0.5 mg tablet; Take 30-45 minutes before flight for anxiety. 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 Monitoring symptoms. Cardiac murmur 11/27/2022 Assessment & Plan (10/06/2024 4:59 PM CDT): Systolic ejection murmur 08/10 Vitamin D deficiency 11/15/2020 Assessment & Plan (10/06/2024 4:59 PM CDT): Currently on vitamin d 72141 weekly. Orders: Vitamin D 25 hydroxy; Future Neurogenic thoracic outlet syndrome 11/02/2018 Assessment & Plan (10/06/2024 4:59 PM CDT): Orders: Ambulatory referral order to Physical Therapy -; Future Dysmenorrhea 04/21/2011 Overview (10/06/2024): Dysmenorrhea;Recorded Elsewhere: No Location: [facility] Source: EHR Chronic: N Practice ID: [id number] Billable Time: 01:30:00 PM Assessment & Plan (10/06/2024 4:59 PM CDT): Follows with gynecology. Resolved Problems Problem Noted Date Diagnosed Date Resolved Date Sore throat 03/16/2024 10/06/2024 Multiple benign melanocytic nevi 01/13/2024 10/06/2024 Injury of finger 12/28/2022 10/06/2024 Achilles tendinitis of right lower extremity 3 10/06/2024 Tendinitis of right foot 07/12/202210/2024 Pain in right foot 05/07/2022 5 Epilepsy 07/10/2021 10/06/2024 Fatigue 07/10/2021 10/06/2024 Irregular periods 07/10/2021 10/06/2024 Neuropathy 07/10/2021 10/06/2024 Pain of breast 07/10/2021 10/06/2024 Palpitations 07/10/2021 10/06/2024 Upper respiratory infection 07/10/2021 10/06/2024 Myalgia 02/25/2019 10/06/2024 Right arm pain 02/25/2019 10/06/2024 Leukocytosis 12/28/2016 10/06/2024 Overview (10/06/2024): Elevated white blood cell count, unspecified;Recorded Elsewhere: No Location: [facility] Source: EHR Chronic: N Practice ID: [id number] Billable Time: 11:45:00 AM Increased frequency of urination 01/11/2015 10/06/2024 Overview (10/06/2024): Urinary frequency;Recorded Elsewhere: No Location: [facility] Source: EHR Chronic: N Practice ID: [id number] Billable Time: 10:45:00 AM Proteinuria 01/16/2014 10/06/2024 Overview (10/06/2024): Proteinuria;Recorded Elsewhere: No Location: [facility] Source: EHR Chronic: N Practice ID: [id number] Billable Time: 09:30:00 AM Urinary tract infectious disease 01/16/2014 10/06/2024 Overview (10/06/2024): Urinary Tract Infection;Recorded Elsewhere: No Location: [facility] Source: EHR Chronic: N Practice ID: [id number] Billable Time: 09:30:00 AM Abnormal findings on diagnos tic imaging of breast 06/21/2013 10/06/2024 Disorder of breast 12/05/2012 Lump or mass in breast 12/30/201110/06 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 10/06/2024 Immunizations Immunization Administration Dates Next Due Influenza, Unspecified 07/05/2024(Deferr ed: Patient Refused),07/05/2023(Deferred: Patient Refused) Social History Tobacco Use Types Packs/Day Years Used Date Smoking Tobacco: Never Smokeless Tobacco: Never Tobacco Cessation:Counseling Given: Not Answered Alcohol Use Standard Drinks/Week Comments No 0 (1 standard drink = 0.6 oz pur e alcohol) PHQ-2 Answer Date Recorded PHQ-2 Total Score (If total score is 3 or more points, staff should administer the PHQ-9) 0 10/06/2024 Comments Unknown Sex and Gender Information Value Date Recorded Sex Assigned at Not on file Legal 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 Gender Identity Not on file Sexual Orientation Not on file Last Filed Vital Signs Vital Sign Reading Time Taken Comments Blood Pressure 92/58 10/06/2024 1:36 PM CDT Pulse 58 10/06/2024 1:36 PM CDT Temperature 36.8 C (98.2 F) 10/06/2024 1:36 PM CDT Respiratory Rate 16 10/06/2024 1:36 PM CDT Oxygen Saturation 98% 10/06/2024 1:36 PM CDT Inhaled Oxygen Concentration - - Weight 52.6 kg (116 lb) 10/06/2024 1:36 PM CDT Height 157.5 cm (5' 2 ) 10/06/2024 1:36 PM CDT Body Mass Index 21.22 10/06/2024 1:36 PM CDT Plan of Treatment Not on file Goals Goal Patient Goal Type Associated Problems [...] lifestyle strategies and compensatory methods as needed Procedures Procedure Name Priority Date/Time Associated Diagnosis Comments MAMMOGRAPHY Routine 10/06/2024 11:24 AM CDT from Last 3 Months Results * MAMMOGRAPHY (10/06/2024 11:24 AM CDT) Mammography Normal Cony Renee MD HEALTH MAINTENANCE Final Result from Last 3 Months Insurance [facility] Care Teams Client Account Manager Relationship Specialty Start Date End Date Kacey Carter NP [address] [place] [address] PCP - General Internal Medicine 10/06/24 Cony Renee MD [address] [place] [address] Referring Physician Gynecology 10/06/24 Jesus Shetty MD [address] [facility] [address] [place] [address] Referring Physician Vascular Surgery 10/06/24
--- OUTSIDE RECORDS SUMMARY | 2024-10-17 17:07 | XMS_ITS | Clinical Summary ---
Author Organization [facility] Address [address] [place] [address] Care Team Providers Care Engineering Librarian Name Role Phone Cony Renee MD Unavailable [phone] Kacey Carter NP Primary Care Provider [phone] Jesus Shetty MD Unavailable [phone] Allergies No known active allergies Medications multivitamin [...] Plan (10/06/2024 4:59 PM CDT): Follows with binding dyer. Monitoring symptoms. Cardiac murmur 11/27/2022 Assessment & Plan (10/06/2024 4:59 PM CDT): Systolic ejection murmur 08/10 Vitamin D deficiency 11/15/2020 Assessment & Plan (10/06/2024 4:59 PM CDT): Currently on vitamin d 38036 weekly. Orders: Vitamin D 25 hydroxy; Future Neurogenic thoracic outlet syndrome 11/02/2018 Assessment & Plan (10/06/2024 4:59 PM CDT): Orders: Ambulatory referral order to Physical Therapy -; Future Dysmenorrhea 04/21/2011 Overview (10/06/2024): Dysmenorrhea;Recorded Elsewhere: No Location: [facility] Source: EHR Chronic: N Practice ID: [id number] Billable Time: 01:30:00 PM Assessment & Plan (10/06/2024 4:59 PM CDT): Follows with gynecology. Resolved Problems Problem Noted Date Diagnosed Date Resolved Date Sore throat 03/16/2024 10/06/2024 Multiple benign melanocytic nevi 01/13/2024 10/06/2024 Injury of finger 12/28/2022 10/06/2024 Achilles tendinitis of right lower extremity 10/06/2024 Tendinitis of right foot 07/12/202210/2024 Pain in right foot 05/07/2022 Epilepsy 07/10/2021 10/06/2024 Fatigue 07/10/2021 10/06/2024 Irregular periods 07/10/2021 10/06/2024 Neuropathy 07/10/2021 10/06/2024 Pain of breast 07/10/2021 10/06/2024 Palpitations 07/10/2021 10/06/2024 Upper respiratory infection 07/10/2021 10/06/2024 Myalgia 02/25/2019 10/06/2024 Right arm pain 02/25/2019 10/06/2024 Leukocytosis 12/28/2016 10/06/2024 Overview (10/06/2024): Elevated white blood cell count, unspecified;Recorded Elsewhere: No Location: [facility] Source: EHR Chronic: N Practice ID: [id number] Billable Time: 11:45:00 AM Increased frequency of urination 01/11/2015 10/06/2024 Overview (10/06/2024): Urinary frequency;Recorded Elsewhere: No Location: [facility] Source: EHR Chronic: N Practice ID: [id number] Billable Time: 10:45:00 AM Proteinuria 01/16/2014 10/06/2024 Overview (10/06/2024): Proteinuria;Recorded Elsewhere: No Location: [facility] Source: EHR Chronic: N Practice ID: [id number] Billable Time: 09:30:00 AM Urinary tract infectious disease 01/16/2014 10/06/2024 Overview (10/06/2024): Urinary Tract Infection;Recorded Elsewhere: No Location: [facility] Source: EHR Chronic: N Practice ID: [id number] Billable Time: 09:30:00 AM Abnormal findings on diagnos tic imaging of breast 06/21/2013 10/06/2024 Disorder of breast 12/05/2012 Lump or mass in breast 12/30/201110/06 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 10/06/2024 Encounters Date Type Department Care Team Description 10/06/2024 1:30 PM CDT Office Visit [facility] Primary Care at [address] [address] Kacey Carter NP Colon cancer screening (Primary Dx); Vitamin D deficiency; Cardiac murmur; Wellness examination; Fabiola-menopause; Elevated LDL cholesterol level; Fatigue, unspecified type; Screening for thyroid disorder; Family history of thyroid disease; Neurogenic thoracic outlet syndrome; Situational anxiety; Dysmenorrhea; Cervical adenopathy; Polyarthralgia; History of gestational diabetes; Seasonal allergies; Mass of upper outer quadrant of right breast from Last 3 Months Immunizations Immunization Administration Dates Next Due Influenza, Unspecified 07/05/2024(Deferr ed: Patient Refused),07/05/2023(Deferred: Patient Refused) Surgical History Surgery Date Site/Laterality Comments KNEE SURGERY 04/04/1997 - 05/04/1997 SECTION 03/25/2005 SECTION 09/20/2009 BREAST SURGERY Have had one benign breast cyst removed Medical History Medical History Date Comments Abuse of nutritional supplements Headache Numbness and tingling Abnormal heart rhythm Diabetes mellitus (HCC) Gestational Diabetes Migraines Seizures (HCC) Father has Epilepsy, I had one seizure upon trama Thyroid disease Mother has thyroid disease Achilles tendinitis of right lower extremity 07/12/2022 Irregular periods 07/10/2021 Increased frequency of urination 01/11/2015 Urinary frequency;Recorded Elsewhere: No Location: [facility] Source: EHR Chronic: N Practice ID: [id number] Billable Time: 10:45:00 AM Multiple benign melanocytic nevi 01/13/2024 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 Family History Medical History Relation Name Comments No Known Problems Brother Cancer Father Father - skin, M aternal Grandfather - Colon Anxiety disorder Mother Mother and Maternal Gran dmother Depression Mother Mother and Maternal Grandmot her Thyroid cancer Mother Mother and Maternal Grandm other Heart disease Paternal Grandfather Valve Replacement Relation Name Status Comments Brother Alive Father Father - skin, Maternal Grandfather - Col on Alive Mother Mother and Maternal Grandmother Alive Paternal Grandfather Valve Replacement Social History Tobacco Use Types Packs/Day Years [...] on file Legal 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 Gender Identity Not on file Sexual Orientation Not on file Obstetrics History Para Term AB IAB SAB Ectopic Multiple Livin g Live Births 1 Date Outcome GA Total Labor Labor/2nd/3rd Weight Sex Type Anes PTL Lindy A1 A5 Name Clin Last Filed Vital Signs Vital Sign Reading [...] 10/06/2024 1:36 PM CDT Plan of Treatment Health Maintenance Due Date Last Done Comments Colon Cancer Screening-Colonoscopy 1979 DTaP/Tdap/Td Vaccine (1 - Tdap) 1990 Influenza Vaccine (Season Ended) 2025 Cervical Cancer Screening 04/27/2025 04/27/2024 Breast Cancer Screening-Mammogram 10/06/2025 10/06/2024, 08/23/2020 Depression Screening 10/06/2025 10/06/2024 Regular Well Visit/Exam 18-64 10/06/2025 10/06/2024 HPV Vaccines Aged Out No longer eligi ble based on patient's age to complete this topic Hepatitis B Screening Discontinued Hepatitis C Screening Discontinued Pneumococcal vaccine <65 Aged Out No longer eligible based on patient's age to complete this topic Varicella Vaccines Discontinued Goals Goal Patient Goal Type Associated Problems Recent Progress Patient-Stated? Author CCM Chronic Pain Care Plan Chronic Care Management No Michael Contreras, RN Note: Problem: Chronic Pain Goals: 1. [...] Final Result from Last 3 Months Insurance [facility] Care Teams Engineering Librarian Relationship Specialty Start Date End Date Kacey Carter NP [address] [place] [address] PCP - General Internal Medicine 10/06/24 Cony Renee MD [address] [place] [address] Referring Physician Gynecology 10/06/24 Jesus Shetty MD [facility] [address] [facility] [address] [place] [address] Referring Physician Vascular Surgery 10/06/24
--- OUTSIDE RECORDS SUMMARY | 2024-10-17 17:07 | XMS_ITS | Clinical Summary ---
Author Organization [facility] [employer] Address [address] [place] [address] Care Team Providers Care Die Casting Machine Maintainer Name Role Phone Laury Markham MD Primary Care Provider [phone] Source Comments [facility] [employer],non-owned Affiliates and Associated Physician Practices is amultiple site organization consisting of ambulatory clinics and hospital sitesin [place], [place], [place] and [place]. This disclosure is being madepursuant to the Care Everywhere program and may not contain all information available regarding this patient. Last updated 18.[facility] [employer] Allergies No known active allergies Medications * Be aware that medications may not be up to date on this document. Alwaysverify current medications with the patient. methylPREDNISol one (MEDROL DOSEPAK) 4 MG tablet Take by mouth as directed 21 Each 8 Active Additional Information Patient not taking.Reported on 07/18/2019 methocarbamol (ROBAXIN) 750 MG tablet Take 1 tablet by mouth every 6 hours as needed for Muscle Spasms 15 tablet 8 Active Additional Information Patient not taking.Reported on 07/18/2019 lidocaine (LIDODERM) 5 % patch Apply 1 patch to skin once daily Apply for 12 hours then leave off for 12 hours 6 patch 8 Active Additional Information Patient not taking.Reported on 07/18/2019 Active Problems No known active problems Family History Medical History Relation Name Comments Asthma Neg Hx CVA Neg Hx Cancer - Breast Neg Hx Cancer - Other Neg Hx Cancer - Skin, Melanoma Neg Hx Cancer - Skin, Non Melanoma Neg Hx Eczema Neg Hx Hemophilia Neg Hx Psoriasis Neg Hx Social History Tobacco Use Types Packs/Day Years Used Date Smoking Tobacco: Never Smokeless Tobacco: Never Tobacco Cessation:Counseling Given: No Alcohol Use Standard Drinks/Week Comments Never 0 (1 standard drink = 0.6 oz pur e alcohol) Comments Unknown Sex and Gender Information Value Date Recorded Sex Assigned at Not on file Legal Sex Female 10:23 AM CDT Gender Identity Not on file Sexual Orientation Not on file Last Filed Vital Signs Vital Sign Reading Time Taken Comments Blood Pressure 113/76 03/07/2018 12:41 PM CDT Pulse 89 03/07/2018 10:24 AM CDT Temperature 36.7 C (98 F) 03/07/2018 10:24 AM CDT Respiratory Rate 18 03/07/2018 10:24 AM CDT Oxygen Saturation 99% 03/07/2018 12:41 PM CDT Inhaled Oxygen Concentration - - Weight 49.9 kg (110 lb) 03/07/2018 10:24 AM CDT Height 157.5 cm (5' 2 ) 03/07/2018 10:24 AM CDT Body Mass Index 20.12 03/07/2018 10:24 AM CDT Plan of Treatment Health Maintenance Due Date Last Done Comments COLOGUARD (AGES 45-75) - COL ON CA SCREENING 1979 COLON MONITORING 1979 COLONOSCOPY - COLON CA SCREENING 1979 CT COLONOGRAPHY - COLON CA SCREENING 1979 Colorectal Cancer Screening 1979 FIT - COLON CA SCREENING 1979 FLEX SIG - COLON CA SCREENING 1979 LIPID TESTING 1979 MAMMOGRAM 1979 PAP SMEAR 1979 HIV SCREENING 1994 HEPATITIS C SCREENING 07/06/1997 DTAP/TDAP/TD VACCINES (1 - Tdap) 1998 HEPATITIS B VACCINE (1 of 3 - 19+ 3-dose series) 1998 COVID-19 VACCINE ( - 2023-2 5 season) 2024 DEPRESSION SCREENING 07/05/2024 INFLUENZA VACCINE (Season Ended) 2025 ZOSTER VACCINE (1 of 2) 2029 HIB VACCINE Aged Out No longer eligi ble based on patient's age to complete this topic HPV VACCINE Aged Out No longer eligi ble based on patient's age to complete this topic MENINGOCOCCAL (Group B) VACC INE SHARED DECISION-MAKING Aged Out No longer eligibl e based on patient's age to complete this topic MENINGOCOCCAL GROUPS A/C/Y/W VACCINE Aged Out No longer eligible b ased on patient's age to complete this topic PNEUMOCOCCAL VACCINE Aged Out No long er eligible based on patient's age to complete this topic Insurance Care Teams Die Casting Machine Maintainer Relationship Specialty Start Date End Date Laury Markham MD [facility] [place] [address] PCP - General 04/13/18
--- OUTSIDE RECORDS SUMMARY | 2024-10-17 17:07 | XMS_ITS | Encounter Summary ---
Author Organization [facility] Address [address] [place] [address] Care Team Providers Care Supervisor Sawmill Name Role Phone Cony Renee MD Unavailable [phone] Kacey Carter NP Primary Care Provider [phone] Jesus Shetty MD Unavailable [phone] Reason for Visit * Reason Onset Date Comments CALL BACK 02/22/2019 Encounter Details Date Type Department Care Team (Late st Contact Info) Description 02/22/2019 Telephone [facility] [address] [place] [id number] Pablo Velarde MD [address] [place] [address] CALL BACK Social History Tobacco Use Types Packs/Day Years Used Date Smoking Tobacco: Never Smokeless Tobacco: Never Alcohol Use Standard Drinks/Week Comments No 0 (1 standard drink = 0.6 oz pur e alcohol) Comments Yes Sex and Gender Information Value Date Recorded Sex Assigned at Not on file Legal Sex Female 1:13 AM RN CLINICAL QUALITY Gender Identity Not on file Sexual Orientation [...] as needed documented as of this encounter Visit Diagnoses Not on filedocumented in this encounter Care Teams Supervisor Sawmill Relationship Specialty Start Date End Date Kacey Carter NP [address] [place] [address] PCP - General Internal Medicine 10/06/24 Cony Renee MD [address] [place] [address] Referring Physician Gynecology 10/06/24 Jesus Shetty MD [address] [place] [address] Referring Physician Vascular Surgery 10/06/24 documented as of this encounter
--- OUTSIDE RECORDS SUMMARY | 2024-10-17 17:07 | XMS_ITS | Clinical Summary ---
Author Organization [facility] Address [address] [place] [address] Phone Care Team Providers Care Instrumentation Engineer Name Role Phone Unavailable Primary Care Provider Unavailabl e Allergies No known active allergies Medications No known medications Active Problems Problem Noted Date Diagnosed Date Lump or mass in breast 12/30/2011 Social History Tobacco Use Types Packs/Day Years Used Date Smoking Tobacco: Never Alcohol Use Standard Drinks/Week Comments Not Asked 0 (1 standard drink = 0.6 oz pur e alcohol) Comments Unknown Sex and Gender Information Value Date Recorded Sex Assigned at Not on file 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 Gender Identity Not on file Sexual Orientation Not on file Last Filed Vital Signs Vital Sign Reading Time Taken Comments Blood Pressure 104/73 12/30/2011 11:29 AM CDT Pulse 69 12/30/2011 11:29 AM CDT Temperature - - Respiratory Rate - - Oxygen Saturation - - Inhaled Oxygen Concentration - - Weight 45.4 kg (100 lb) 12/30/2011 11:29 AM CDT Height 157.5 cm (5' 2 ) 12/30/2011 11:29 AM CDT Body Mass Index 18.29 12/30/2011 11:29 AM CDT Plan of Treatment Health Maintenance Due Date Last Done Comments DTAP/TDAP/TD VACCINES (1 - Tdap) 1998 HEPATITIS B VACCINES (1 of 3 - 19+ 3-dose series) 1998 HPV/Cotest (21-29) 2000 CERVICAL CANCER SCREENING 2009 HPV/Cotest (30-65) 2009 PAP SMEAR 2009 BREAST CANCER SCREENING 2019 INFLUENZA VACCINE (#1) 2024 COLORECTAL SCREENING 2024 Colorectal Cancer Screening 2024 FIT-DNA Q 3 years 2024 FIT/FOBT Q 1 year 2024 Flex Sig/CT Colonography Q 5 years 2024 HPV VACCINES Aged Out No longer eligi ble based on patient's age to complete this topic
--- OUTSIDE RECORDS SUMMARY | 2024-10-17 17:07 | XMS_ITS | Encounter Summary ---
Author Organization [facility] Healthcare Address [address] [place] [address] Care Team Providers Care Clinical Dietetic Technician Name Role Phone Unavailable Primary Care Provider Unavailabl e Reason for Visit * Diagnostic Imaging (Routine) - Closed Specialty Diagnoses / Procedures Referred By Contac t Referred To Contact Procedures Breast Imaging US Outside Reference Tricia Barreto MD PhD [id number] [place] [address] Phone: tel: fax: Referral ID Status Reason Start Date Expiration Date Visits Re quested Visits Authorized [id number] Closed 05/25/2022 06/24/2023 1 1 Encounter Details Date Type Department Care Team (Late st Contact Info) Description 08/26/2020 Hospital Encounter [facility] [address] [place] [id number] Social History Tobacco Use Types Packs/Day Years [...] on file Legal Sex Female 1:13 AM FACTORER Gender Identity Not on file Sexual Orientation [...] Comments BREAST IMAGING US OUTSIDE REFERENCE Routine 08/26/2020 12:00 AM FACTORER documented in this encounter Results * Breast Imaging US Outside Reference (08/26/2020 12:00 AM FACTORER) Impressions [facility] - 05/25/2022 1:10 PM FACTORER These images are for Reference purposes only and have not been reviewed by [facility] Radiology. There will be no report generated by a [facility] Radiologist. Narrative [facility] - 05/25/2022 1:10 PM FACTORER EXAMINATION: Images For Reference Purposes Only us Tricia Barreto MD PhD IMG MAMMO PROCEDURES Final Result [facility] documented in this encounter Visit Diagnoses Not on filedocumented in this encounter
--- OUTSIDE RECORDS SUMMARY | 2024-10-17 17:07 | XMS_ITS | Data Portability ---
Author Organization [facility] [place] Address [address] [facility] [place] [address] Care Team Providers Care Relay Checker Name Role Phone AWILDA ENG Primary Care Provider Assessment No assessment recorded. Plan of Treatment Reminders Order Date Submit Date Provider Last Modified By Organization Details Last Modified Time Details Appointments None recorded. Lab None recorded. Referral dermatolog ist referral - Please call patient to schedule appt. Thank you 2018 019 [facility] Care Physician Referral Management, [address] [facility] [address], [address], 0 10:52:52 physical therapist referral 2018 019 [email or web address] [facility] (Outpatient Physical Therapy), [facility] Perez, [place], [address], 9 15:23:39 Procedures None recorded. Surgeries None recorded. Imaging None recorded. Medication Orders None recorded. Patient TargetsNo targets recorded. Patient Instructions Encounter Date Encounter Id Patient Instructions Last Modified By Organization Details Last Modified Time 06/22/2019 [id number] ingrown toenail: care instructions [email or web address] Not available 06/22/2019 15:23:30 Reason for Referral Physical Therapist Referral for Chronic back pain Referring Physician: [facility], Encounter Date: 06/22/2019 [employer] Specialist Referral for L esion of skin of face Skin nodule on skin near left ear Please call patient to schedule appt. Thank you Referring Physician: General Jamaal Isaacs, Encounter Date: 06/22/2019 Problems Name Problem SNOMED Code Status Onset Date Resolution Date Notes Provider Name and Address Organization Details Recorded Time Chronic back pain 065001846 Active 019 TADEO ISAACS Attn: Carelne [address]oper[address] [facility], [place], [address], [facility] 9 15:10:44 Ingrowing toenail 718078626 Active 019 TADEO ISAACS Attn: Carlene [address] [place], [address], [facility] 9 15:28:44 Shoulder pain 71791890 Active 020 TADEO ISAACS Attn: Carlene hooper,[address] [place], [address], [facility] 0 16:07:36 Problem Notes None recorded. Procedures Surgical History Date Name Laterality Status Provider Name and Address Organization Details Recorded Time Caesarean Section completed Fang Hudson MA [facility] 06/22/2019 14:55:54 Knee Surgery completed Fang Hudson MA [facility] 06/22/2019 14:56:05 Imaging Results None recorded. Procedure Notes None recorded. Medical Equipment None Reported. Allergies No known drug allergies Medications Not known to be on any medication Vitals Date Recorded Body height Body mass index (BMI) Body weight Heart rate Body temperature Oxygen saturation Oxygen saturation in Arterial blood by Pulse oximetry Systolic blood pressure Diastolic blood pressure Provider Name and Address Organization Details Last Updated DateTime 9 157.48 cm 21 kg/m2 86867.7 2 g 74 /min 99.4 [degF] 98 % 98 % 102 mm[Hg] 66 mm[Hg] Fang Hudson MA [facility] 9 14:51:10 Social History Question Answer Notes LastModified by Organizat ion Details LastModified Time Tobacco Smoking Status Never Smoker Fang Hudson MA null, [facility] 06/22/2019 14:55:06 What Is Your Level Of Alcohol Consumption? None Information not available 06/22/2019 What Is Your Level Of Caffeine Consumption? None Information not available 06/22/2019 What Type Of Diet Are You Following? REGULAR Information not available 06/22/2019 Do You Or Have You Ever Used E-cigarettes Or Vape? Never Used Electronic Cigarettes Information not available 06/22/2019 Marital Status [facility] Informatio n not available 06/22/2019 What Was The Date Of Your Most Recent Tobacco Screening? 06/22/2019 Information not available 06/22/2019 Do You Or Have You Ever Used Smokeless Tobacco? Never Used Smokeless Tobacco Information not available 06/22/2019 How Much Tobacco Do You Smoke? No Information not available 06/22/2019 General Stress Level Medium Information not available 06/22/2019 On What Date Was Tobacco Cessation Counseling Provided? 06/22/2019 Information not available 06/22/2019 Sex: Unknown Functional Status None recorded. Mental Status None recorded. Family History Relationship Description Onset Age of this Age Resolved Age Notes LastModified by Organization Details LastModified Time Maternal Grandfather Malignant tumor of colon mnelsonma Not available 2018 14:54:09 Paternal Grandmother Malignant tumor of breast mnelsonma Not available 2018 14:54:20 Paternal Grandfather Heart disease mnelsonma Not available 2018 14:54:33 Father Malignant neoplasm of skin mnelsonma Not available 2018 14:54:51 Mother Depressive disorder mnelsonma Not available 2018 14:54:58 Mother Disorder of thyroid gland mnelsonma Not available 2018 14:57:47 Medical History Condition Response Coronary Artery Disease N Other Y High Blood Pressure N Atrial Fibrillation N Thyroid Problems N Depression Y COPD N Blood Clots N Skin Problems Y Anemia N Heart Attack (DC) N Diabetes Y Anxiety Disorder N Muscle, Joint, or Bone Problems N Seizures/Epilepsy N Acid Reflux (GERD) N Cancer N Stroke N Asthma N Allergies Y High Cholesterol N Hepatitis N Liver Disease N Headaches N Heart Failure N Osteoporosis N Gynecological History Statement/Question Response Date of LMP 06/22/2019 Frequency of Cycle (Q days) 28 On BCP's at Conception? N Menses Monthly Y Duration of Flow (days) 2 Age at Menarche 13 Current Control Method Partner Vas ectomy Age at First Child 24 LMP Definite Obstetrics History GPAL:G 3 P 2 0 1 2 Type Value Full Term 2 Spontaneous 1 Living 2 Total 3 Past Encounters Encounter ID Performer Location Encounter Start Date Encounter Closed Date Diagnosis/Indication Diagnosis SNOMED-CT Code Diagnosis ICD10 Code Diagnosis Note [id number] TADEO ISAACS (Adult Med) [address] [place] [address] 06/22/2019 14:22:07 06/22/2019 16:37:04 [id number] TADEO ISAACS (Adult Med) [address] [place] [address] 06/22/2019 14:36:36 06/23/2019 14:08:22 Ingrowing toenail 745439279 L60.0 Hx of ingrown toenail years ago which required procedure performed by podiatry.S tates her L big toenail may have the same issue again x 1-2 weeks.She has been soaking her foot in epsom salt and tried to raise the edge of her nail but ended up breaking the toenail.On PE: Broken L big toenail, slight swelling near medial nail fold. No erythema. Slightly TTP.- Provided her with instructio ns at home- Does not look infected at this time, will hold off on abx- Advised patient that if home remedies do not work, will put in podiatry referral Chronic back pain 183992 002 M54.9 Chronic middle back pain since the of her son 14 years ago.She has seen multiple physicians regarding her pain and finally started PT at [facility] and having good relief from it.Since of PCP change, she was told she needs a new referral. Takes no medication for back pain.On PE: upper thoracic spine TTP - Provided her with new referral today Lesion of skin of face [id number] 06 L98.9 Noticed a small lesion on her face, located near tragus of L ear, x 1 month.She thought it was a zit and tried to pop it but it won't pop. Admits to it growing in size.On PE: small .3 cm lesion near tragus of L ear. Skin colored with no visible head. Not TTP.- WIll put in dermatolog y referral for possible excision Health Concerns Section Related Observation LastModified by Organization Detai ls LastModified Time None Recorded Concern Status LastModified by Organization Details LastModified Time None Recorded Advance Directives Directive None Recorded Payers Encounter Date Sequence Insurance Name Policy Number Policy Melton Covered Member ID Melton Member ID Guarantor Name 06/22/2019 1 [facility] PRIOR TO 01/02/2021 (MEDICAID REPLACEMENT - HMO) Fidelina Castaneda [id number] Fidelina Castaneda 06/22/2019 1 [facility] PRIOR TO 01/02/2021 (MEDICAID REPLACEMENT - HMO) Fidelina Castaneda [id number] Fidelina Castaneda Notes Date Note Type Note Provider Name and Address Organization Details Recorded Time 06/22/2019 text/html 38 year old female presents today to establish care. Her PCP no longer takes her insurance. She has has chronic middle back pain since the of her son 14 years ago. She has seen multiple physicians regarding her pain and finally started PT at [facility] and having good relief from it. Since of PCP change, she was told she needs a new referral. Takes no medication for back pain. Hx of ingrown toenail years ago which required procedure performed by podiatry. States her L big toenail may have the same issue again. Started having pain 1-2 weeks ago. She has been soaking her foot in epsom salt and tried to raise the edge of her nail but ended up breaking the toenail. Denies fever, chills, nausea, vomiting, and signs of infection including erythema, warmth, discharge, and swelling. Also noticed a small lesion on her face, located near tragus of L ear, x 1 month. She thought it was a zit and tried to pop it but it won't pop. Admits to it growing in size. No other lesions like this on her body. Denies pain, erythema, swelling, or discharge. TADEO ISAACS Attn: Accounting[address] [place], [address], [place] [facility] 06/22/2019 15:39:00 OBGyn Episode Ob Episode Information Episode Created Date Number of Fetuses Patient Bloodtype Patient rh Status Prepregnancy Weight lbs Domestic Partner Domestic Partner Phone Father Name Mobile Security Architect Status 06/22/20 19 1 CLOSED Fetus Data First Name Last Name Admitted to NICU Weight (g) Sex Living Outcome Pediatric Complications Fetus ID Race Codes Race Delivery Type M Full Term [id number] Randal Calculation Initial Randal Date Initial Exam Date Initial Exam Provider Initial Ultrasound Date Last Menstrual Period Date Ultra Sound Weeks Gestation 0 Eighteen To Twenty Week Randal Update Ultra Sound Date Fundal Height At Umbil Quickening Date Ultra Sound Latest Weeks Gestation Final Randal Confirmed By Final Randal Confirmed Date Final Randal Date Ultra Sound Latest Days Gestation 0 0 Menstrual History Last Menstrual Date Menses Monthly On Bcp Conception Prior Menses Frequency Hcg Plus Date Menarche Onset Age Delivery Information Delivery Date Delivery Type Labor Anesthesia Weeks Gestation Incision Type Labor Labor Length Hrs Delivered By Post Complications Tubal Sterilization Discharge Date Comments 5 Discharge Information Feeding Method Contraceptive Method Maternal HG B and HCT Levels Ob Episode Information Episode Created Date Number of Fetuses Patient Bloodtype Patient rh Status Prepregnancy Weight lbs Domestic Partner Domestic Partner Phone Father Name Mobile Security Architect Status 06/22/20 19 1 CLOSED Fetus Data First Name Last Name Admitted to NICU Weight (g) Sex Living Outcome Pediatric Complications Fetus ID Race Codes Race Delivery Type F Full Term [id number] Randal Calculation Initial Randal Date Initial Exam Date Initial Exam Provider Initial Ultrasound Date Last Menstrual Period Date Ultra Sound Weeks Gestation 0 Eighteen To Twenty Week Randal Update Ultra Sound Date Fundal Height At Umbil Quickening Date Ultra Sound Latest Weeks Gestation Final Randal Confirmed By Final Randal Confirmed Date Final Randal Date Ultra Sound Latest Days Gestation 0 0 Menstrual History Last Menstrual Date Menses Monthly On Bcp Conception Prior Menses Frequency Hcg Plus Date Menarche Onset Age Delivery Information Delivery Date Delivery Type Labor Anesthesia Weeks Gestation Incision Type Labor Labor Length Hrs Delivered By Post Complications Tubal Sterilization Discharge Date Comments 0 Discharge Information Feeding Method Contraceptive Method Maternal HG B and HCT Levels
--- OUTSIDE RECORDS SUMMARY | 2024-10-17 17:07 | XMS_ITS | Data Portability ---
Author Organization [facility] [place] Address [address] [place] [address] [place] [address] Assessment No assessment recorded. Plan of Treatment Reminders Order Date Submit Date Provider Last Modified By Organization Details Last Modified Time Details Appointments None recorded. Lab None recorded. Referral None recorded. Procedures None recorded. Surgeries None recorded. Imaging US, breast, bilateral - I have recommended mammogram with u/s. Pt requested u/s first and mammogram only if absolutely necessary. Can do additional imaging if needed. 2020 021 [facility], [address], [place], [address], 11:03:57 Medication Orders None recorded. Patient TargetsNo targets recorded. Patient InstructionsNo instructions recorded. Reason for Referral None Reported. Results Created Date Observation Date Name Description Value Unit Range Abnormal Flag Note LastModifiedBy Organization Detail LastModifiedTime 01/08/2001/10/2020 cultu re, urine specimen source Urine - Void Not Available [facility] [address], [place], [address], 01/10/2020 04:10:25 01/08/2001/10/2020 cultu re, urine culture, urine See Below No growt h Not Available [facility] ([facility]) [address], [place], [address], 01/10/2020 04:10:25 01/08/2001/08/2020 urina lysis , dipst ick Leukocytes ++ Not Available [facility] [address], [place], [address], 01/08/2020 16:42:57 08/23/19 21 08/22/2020 MAMMO , scree josselin, bilat eral No observ ation record ed. [facility] [address] [place], [address], 08/30/2020 18:49:14 05/08/20 21 08/26/2020 MAMMO , diagn ostic , digit al, bilat eral No observ ation record ed. [facility] [address] [place], [address], 05/12/2021 15:04:51 08/19/19 22 06/04/2021 US, breas t, bilat eral No observ ation record ed. [facility] [address] [place], [address], 08/27/2021 11:13:26 Result Notes None recorded. Problems Name Problem SNOMED Code Status Onset Date Resolution Date Notes Provider Name and Address Organization Details Recorded Time Speciali zed medical examinat ion Completed 201008/02/2020 Gynecolo gical Examinat ion;Jovan rded Elsewher e: No Locat ion: [facility] S ource: EHR Client Onboarding Analyst lyric: N Guero ce ID: 0001 Leland lable Time: 01:30:00 PM Martha del real [facility] 14:42:17 Blood leukocyt e number above referenc e range [id number] Completed 201608/02/2020 Elevated white blood cell count, unspecif ied;Jovan rded Elsewher e: No Locat ion: [facility] S ource: EHR Client Onboarding Analyst lyric: N Brendati ce ID: 0001 Leland lable Time: 11:45:00 AM Martha del real [facility] 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 14:42:16 Disorder of breast 64768065 Completed 201708/02/2020 Disorder of breast, unspecif ied;Jovan rded Elsewher e: No Locat ion: [facility] [facility] S ource: EHR Client Onboarding Analyst lyric: N Practi ce ID: 0001 Leland lable Time: 01:48:33 PM Martha del real [facility] 14:41:57 Proteinu ana 53034515 Completed 201308/02/2020 Proteinu ana;Jovan rded Elsewher e: No Locat ion: [facility] [facility] S ource: EHR Client Onboarding Analyst lyric: N Practi ce ID: 0001 Leland lable Time: 09:30:00 AM Martha del real [facility] 14:42:08 Urinary tract infectio us disease [id number] Completed 201308/02/2020 Urinary Tract Infectio n;Record ed Elsewher e: No Locat ion: [facility] S ource: EHR Client Onboarding Analyst lyric: N Practi ce ID: 0001 Leland lable Time: 09:30:00 AM Martha del real [facility] 14:42:22 Breast lump [id number] Completed 201308/02/2020 Breast mass;Rec orded Elsewher e: No [facility] Client Onboarding Analyst lyric: N Practi ce ID: 0001 Leland lable Time: 09:15:00 AM Martha del real [facility] 14:41:[address] Concept Completed 201608/02/2020 Encntr for general adult medical exam w/o abnormal findings ;Recorde d Elsewher e: No Locat ion: [facility] S ource: EHR Client Onboarding Analyst lyric: N Practi ce ID: 0001 Leland lable Time: 01:00:00 PM Martha del real [facility] 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 14:42:19 Pregnanc y test negative [id number] Completed 201508/02/2020 Encounte r for pregnanc y test, result negative ;Recorde d Elsewher e: No Locat ion: [facility] S ource: EHR Client Onboarding Analyst lyric: N Practi ce ID: 0001 Leland lable Time: 01:15:00 PM Martha del real [facility] 14:42:07 Lump in upper inner quadrant of left breast [id number] 4100 Completed 201808/02/2020 Unspecif ied lump in the left breast, upper inner quadrant ;Recorde d Elsewher e: No Locat ion: [facility] S ource: EHR Client Onboarding Analyst lyric: N Practi ce ID: 0001 Leland lable Time: 01:15:00 PM Martha del real [facility] 14:42:[address] Concept Completed 201808/02/2020 Encntr for routine child health exam w/o abnormal findings ;Recorde d Elsewher e: No [facility] Client Onboarding Analyst lyric: N Brendati ce ID: 0001 Leland lable Time: 01:15:00 PM Martha del real [facility] 14:42:13 Increase d frequenc y of urinatio n 230450007 Completed 201408/02/2020 Urinary frequenc y;Record ed Elsewher e: No Locat ion: [facility] S ource: EHR Client Onboarding Analyst lyric: N Brendati ce ID: 0001 Leland lable Time: 10:45:00 AM Martha del real, [facility] 14:42:02 Pain of breast 10594678 Completed 201408/02/2020 Mastodyn ia;Recor ded Elsewher e: No Locat ion: [facility] S ource: EHR Client Onboarding Analyst lyric: N Guero ce ID: 0001 Leland lable Time: 03:29:45 PM Martha del real, [facility] 14:42:05 Dysmenor dylan [id number] Completed 201008/02/2020 Dysmenor dylan;Rec orded Elsewher e: No Locat ion: [facility] S ource: EHR Client Onboarding Analyst lyric: Kate Gutierrezti ce ID: 0001 Leland lable Time: 01:30:00 PM Martha del real [facility] 14:41:59 Screenin g for malignan t neoplasm of cervix Completed 201408/02/2020 Screenin g for malignan t neoplasm s of the cervix;R ecorded Elsewher e: No Locat ion: [facility] S ource: EHR Client Onboarding Analyst lyric: N Brendati ce ID: 0001 Leland lable Time: 10:45:00 AM Martha Huff [facility] 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 14:42:14 Adult health examinat ion Completed 201308/02/2020 Routine general medical examinat ion at a [facility] facility ;Practic e ID: 0001 Martha del real [facility] 14:41:54 Problem Notes None recorded. Procedures Surgical History Date Name Laterality Status Provider Name and Address Organization Details Recorded Time Date of Last Mammogram completed , [facility] 05/07/2021 16:43:37 1 completed , [facility] 05/07/2021 16:44:10 1 Date of Last Pap Smear completed , [facility] 08/02/2020 14:53:41 Imaging Results Imaging Date Name Status LastModified by Organiz ation Details LastModified Time 08/22/2020 MAMMO, screening, bilateral completed [facility] [address] [place], [address], 08/30/2020 18:49:14 08/26/2020 [facility]AMMO, diagnostic, digital, [facility] [address] [place], [address], 05/12/2021 15:04:51 06/04/2021 US, breast, bilateral completed [facility] [address] [place], [address], 08/27/2021 11:13:26 Procedure Notes None recorded. Medical Equipment None Reported. Allergies No known drug allergies Medications Name Sig Start Date Stop Date Status Note LastModified by Organization Details LastModified Time Lidocaine Viscous 2 % mucosal solution 05/08 completed Not Available Not Available Not Available Pyridium 200 mg tablet take 1 tablet by oral route 3 times every day after meals 05/19 completed Prescrib ed Elsewher e: No Locat ion: Matt lozano [facility] odify By: josh calvinuntele DateTime : 01/02/20 17 01:52:32 PM Not Available Not Available Not Available omeprazol e 40 mg capsule,d elayed release 08/06 completed Not Available Not Available Not Available triamcino lone acetonide 0.1 % topical cream APPLY A THIN LAYER TO THE AFFECTED AREA(S) TWICE DAILY 08/06 completed Not Available Not Available Not Available alprazola m 0.5 mg tablet 05/08 completed Not Available Not Available Not Available amoxicill in 875 mg tablet 08/02 completed Not Available Not Available Not Available Metrogel Vaginal 0.75 % (37.5 mg/5 gram) insert 1 applicat orful by vaginal route every day at bedtime 10/03 completed Prescrib ed Elsewher e: No Locat ion: Matt lozano [facility] odify By: [email or web address] Encounkassandra r DateTime : 01/16/20 15 03:18:09 PM Not Available Not Available Not Available neomycin- polymyxin -dexameth 3.5 mg/mL-10, 000 unit/mL-0 .1% eye drops 05/08 completed Not Available Not Available Not Available Cipro 500 mg tablet take 1 tablet by oral route every 12 hours 05/19 completed Prescrib ed Elsewher e: No Locat ion: Matt lozano [facility] odify By: josh calvinuntele DateTime : 01/26/20 17 01:00:00 PM Not Available Not Available Not Available polymyxin B sulfate 10,000 unit-trim ethoprim 1 mg/mL eye drops 05/08 completed Not Available Not Available Not Available amoxicill in 250 mg capsule take 1 capsule by oral route every 8 hours 02/20 completed Prescrib ed Elsewher e: No Locat ion: Katelynnjeannette marta [facility] odify By: amkuhl E ncounter DateTime : 01/23/20 14 10:22:38 AM Not Available Not Available Not Available ergocalci ferol (vitamin D2) 1,250 mcg (50,000 unit) capsule TAKE 1 CAPSULE BY MOUTH ONCE A WEEK active PRN Not Available Not Available No t Available Bactrim DS 800 mg-160 mg tablet take 1 tablet twice daily for 3 days 05/19 completed Prescrib ed Elsewher e: No Locat ion: [facility] M odify By: josh Lozano ncounter DateTime : 12/29/19 17 11:45:00 AM Not Available Not Available Not Available nitrofura ntoin monohydra te/macroc rystals 100 mg capsule Take 1 capsule every 12 hours by oral route. 08/02 completed Not Available Not Available Not Available Vitals Date Recorded Body height Body mass index (BMI) Body weight Systolic blood pressure Diastolic blood pressure Provider Name and Address Organization Details Last Updated DateTime 05/08/2021 170.18 cm 18 kg/m2 76749.12 g 97 mm[Hg] 65 mm[Hg] [facility] 10:38:07 Date Recorded Body height Body mass index (BMI) Body weight Systolic blood pressure Diastolic blood pressure Provider Name and Address Organization Details Last Updated DateTime 08/06/2020 170.18 cm 18.5 kg/m2 14651.9 g 100 mm[Hg] 68 mm[Hg] [facility] 12:07:18 Social History None recorded. Functional Status None recorded. Mental Status None recorded. Family History Relationship Description Onset Age of this Age Resolved Age Notes LastModified by Organization Details LastModified Time Father Seizure [email or web address] Not available 08/02/2020 15:00:36 Mother Disorder of thyroid gland Not available 2020 15:00:50 Maternal Grandfather Malignant tumor of colon [email or web address] Not available 2020 15:01:01 Maternal Grandmother Malignant tumor of breast [email or web address] Not available 2020 15:01:15 Medical History No medical history recorded. Gynecological History Statement/Question Response Abnormal Pap N Date of Last Mammogram 08/22/2020 Date of LMP 04/23/2021 Sexually Active? Y STIs/STDs N Date of Last Pap Smear 08/06/2020 Sexual Problems? 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 Patient advised to get an annual flu shot in the fall and she could obtain at [facility] or [facility]. Also to obtain TDap vaccinatio n if you have not had one in the last 10 years. Recommend yearly mammograms . Encouraged monthly self breast exams. Encourage safe sexual practices, to use condoms and limit partners if not already in a monogamous relationsh ip. Engage in daily exercise of low impact aerobic exercise 45-60 minutes 4-5 times weekly. Avoid tobacco and illicit drugs as well as using moderation with alcohol intake less than 1-2 8 oz beverages daily. This lifestyle behavior pattern will lead to less health conditions and longer life span. If BMI greater than 25 weight watchers or dietary consult advised. All questions have been answered. Patient appears to understand informatio n, but if you have any questions please call or respond to this email. [id number] Tracy Mack [place] [address],[facility] [place] [address] 05/08/2021 10:30:10 05/08/2021 11:16:30 Lump in bilateral breasts [id number] N63.10 N63.20 Pt states she had follow up imaging after last mammogram. Martha has called to request the report. Due to the palpable lumps I have recommende d mammogram with u/s. She verbalized understand ing but has requested u/s first and mammogram only if absolutely necessary. If nl imaging she will rtc in 6 weeks. If abnormal imaging will schedule with specialist kennedi If nl imaging but lump persists at 6 week f/u will need to see specialist . Health Concerns Section Related Observation LastModified by Organization Detai ls LastModified Time None Recorded Concern Status LastModified by Organization Details LastModified Time None Recorded Advance Directives Directive None Recorded Payers Encounter Date Sequence Insurance Name Policy Number Policy Melton Covered Member ID Melton Member ID Guarantor Name 08/06/2020 1 [facility] PRIOR TO 01/02/2021 (MEDICAID REPLACEMENT - HMO) Fidelina Castaneda [id number] 05/08/2021 1 [facility] ON OR AFTER 01/02/21 (MEDICAID REPLACEMENT - HMO) Fidelina Castaneda [id number] Notes Date Note Type Note Provider Name and Address Organization Details Recorded Time 08/06/2020 text/html Annual GYNReport ed bypatient.Menstrua l cycle:Normal menses Urinary symptoms:No hematuria; No incontinence; Feels like she isn't emptying bladder the last few days since drinking tea. Vulva:No genital lesion Vagina:Normal vaginal discharge Breast:No breast pain; No breast lump; No nipple discharge Sexual complaints:No sexual complaints; No pain during intercourse; Normal libido Menopausal Symptoms:No menopausal symptoms; Normal vaginal lubrication Psychological symptoms:No depression; No anxiety; No PMDD Tracy del real [facility] 08/06/2020 12:27:26 05/08/2021 text/html Breast lump x 2 weeks on both sides. Tender on left side. Tracy del real [facility] 05/08/2021 11:00:50 OBGyn Episode Ob Episode Information Episode Created Date Number of Fetuses Patient Bloodtype Patient rh Status Prepregnancy Weight lbs Domestic Partner Domestic Partner Phone Father Name Ore Dryer Status 08/02/19 21 1 CLOSED Fetus Data First Name Last Name Admitted to NICU Weight (g) Sex Living Outcome Pediatric Complications Fetus ID Race Codes Race Delivery Type 7569 Primary Randal Calculation Initial Randal Date Initial Exam [...] Domestic Partner Domestic Partner Phone Father Name Ore Dryer Status 08/02/19 21 1 CLOSED Fetus Data First Name Last Name Admitted to NICU Weight (g) Sex Living Outcome Pediatric Complications Fetus ID Race Codes Race Delivery Type 7570 Repeat Randal Calculation Initial Randal Date Initial Exam [...]
--- OUTSIDE RECORDS SUMMARY | 2024-10-17 17:07 | XMS_ITS | Encounter Summary ---
Author Organization [facility] Healthcare Address [address] [place] [address] Care Team Providers Care Clinician Oncology Name Role Phone Unavailable Primary Care Provider Unavailabl e Reason for Visit * Diagnostic Imaging (Routine) - Closed Specialty Diagnoses / Procedures Referred By Contac t Referred To Contact Diagnoses Mass of right breast, unspecified quadrant Procedures Breast Imaging Diagnostic Outside Reference Tricia Barreto MD PhD [address] [id number] [place] [address] Phone: tel: fax: Referral ID Status Reason Start Date Expiration Date Visits Re quested Visits Authorized [id number] Closed 05/25/2022 06/24/2023 1 1 Encounter Details Date Type Department Care Team (Late st Contact Info) Description 06/07/2018 Hospital Encounter [facility] [address] [place] [address] Social History Tobacco Use Types Packs/Day Years [...] on file Legal Sex Female 1:13 AM 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 There will be no report generated by a [facility] Radiologist. Narrative [facility] - 05/25/2022 1:08 PM LASTER HAND EXAMINATION: Images For Reference Purposes Only us Tricia Barreto MD PhD IMG MAMMO PROCEDURES Final Result [facility] documented in this encounter Visit Diagnoses Not on filedocumented in this encounter
--- OUTSIDE RECORDS SUMMARY | 2024-10-17 17:08 | XMS_ITS | Encounter Summary ---
Author Organization [facility] Healthcare Address [address] [place] [address] Care Team Providers Care Sponge Maker Name Role Phone Unavailable Primary Care Provider Unavailabl e Reason for Visit * Diagnostic Imaging (Routine) - Closed Specialty Diagnoses / Procedures Referred By Contac t Referred To Contact Procedures Breast Imaging US Outside Reference Tricia Barreto MD PhD [address] [id number] [place] [address] Phone: tel: fax: Referral ID Status Reason Start Date Expiration Date Visits Re quested Visits Authorized [id number] Closed 05/25/2022 06/24/2023 1 1 Encounter Details Date Type Department Care Team (Late st Contact Info) Description 12/15/2018 12:05 AM CDT Hospital Encounter [facility]iology [facility] [address] [place] [id number] Social History Tobacco Use Types Packs/Day Years [...] on file 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 There will be no report generated by a [facility] Radiologist. Narrative [facility] - 05/25/2022 1:09 PM PROFESSOR OF MUSIC EXAMINATION: Images For Reference Purposes Only us Tricia Barreto MD PhD IMG MAMMO PROCEDURES Final Result [facility] documented in this encounter Visit Diagnoses Not on filedocumented in this encounter
--- OUTSIDE RECORDS SUMMARY | 2024-10-17 17:08 | XMS_ITS | Encounter Summary ---
Author Organization [facility] Healthcare Address [address] [place] [address] Care Team Providers Care Parking Control Officer Name Role Phone Unavailable Primary Care Provider Unavailabl e Reason for Visit * Diagnostic Imaging (Routine) - Closed Specialty Diagnoses / Procedures Referred By Contac t Referred To Contact Procedures Breast Imaging US Outside Reference Tricia Barreto MD PhD [address] [phone] [place] [address] Phone: tel: fax: Referral ID Status Reason Start Date Expiration Date Visits Re quested Visits Authorized [id number] Closed 05/25/2022 06/24/2023 1 1 Encounter Details Date Type Department Care Team (Late st Contact Info) Description 08/18/2019 Hospital Encounter [facility]iology [facility] [address] [place] [id number] Social History Tobacco Use Types Packs/Day Years [...] on file 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 Radiology. There will be no report generated by a [facility] Radiologist. Narrative [facility] - 05/25/2022 1:09 PM OFFLINE EDITOR EXAMINATION: Images For Reference Purposes Only us Tricia Barreto MD PhD IMG MAMMO PROCEDURES Final Result [facility] documented in this encounter Visit Diagnoses Not on filedocumented in this encounter
--- OUTSIDE RECORDS SUMMARY | 2024-10-17 17:08 | XMS_ITS | Encounter Summary ---
Author Organization [facility] Healthcare Address [address] [place] [address] Care Team Providers Care Command Center Analyst Name Role Phone Unavailable Primary Care Provider Unavailabl e Reason for Visit * Diagnostic Imaging (Routine) - Closed Specialty Diagnoses / Procedures Referred By Contac t Referred To Contact Procedures Breast Imaging Screening Outside Reference Tricia Barreto MD PhD [address] [phone] [place] [address] Phone: tel: fax: Referral ID Status Reason Start Date Expiration Date Visits Re quested Visits Authorized [id number] Closed 05/25/2022 06/24/2023 1 1 Encounter Details Date Type Department Care Team (Late st Contact Info) Description 08/22/2020 Hospital Encounter [facility] [address] [place] [address] Social History Tobacco Use Types Packs/Day Years [...] on file 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 There will be no report generated by a [facility] Radiologist. Narrative [facility] - 05/25/2022 1:09 PM CONVEYOR WEIGHER OPERATOR EXAMINATION: Images For Reference Purposes Only us Tricia Barreto MD PhD IMG MAMMO PROCEDURES Final Result [facility] documented in this encounter Visit Diagnoses Not on filedocumented in this encounter
--- OUTSIDE RECORDS SUMMARY | 2024-10-17 17:08 | XMS_ITS | Data Portability ---
Author Organization [place] - [facility] [employer] [facility], Main Office Address [address] [place] [address] Care Team Providers Care Cafe Site Attendant Name Role Phone ROHIT RIVERO Primary Care Provider [phone] ROHIT RIVERO Referring Provider [phone] Assessment Encounter Date Assessment Date Assessment LastModified by Organization Details LastModified Time 01/13/2023 01/13/2023 42-year-old patient presents today with right ulnar wrist pain that started about 2 months ago. She states she was using a pneumatic drill on a home project and started to feel soreness the next day. Since then she has had pain with certain movements and lifting objects. She has tried using a brace, icing, heat, and taking ibuprofen occasionally. These treatments have not helped. She denies any other injuries to this wrist in the past. She is right-handed. Review of systems per patient questionnaire Imaging: X-rays reviewed show no acute bony abnormality, no fracture. Preserved joint space throughout. Physical exam: No redness, swelling, or bruising present. Able to perform full range of motion without issue or pain. No pain with resisted wrist extension. Pain with palpitation at the ulnar-sided cartilage space. We will start her with a course of hand therapy. She can continue to use the brace as needed for comfort. We recommend that she take anti-inflammator ies consistently for a few weeks. We can see her back in 6 weeks after therapy to check her progress. [email or web address] Not available 01/14/2023 13:42:51 Plan of Treatment Reminders Order Date Submit Date Provider Last Modified By Organization Details Last Modified Time Details Appointments None recorded. Lab rapid strep group A, throat 2023 024 [facility] [address], [place], [address], 4 16:51:48 streptococc us group A, culture, throat 2023 024 [email or web address] 2 Not available 4 09:07:[address] referral - Did sunburn as a teen , please eval and treat prn. Please call patient to schedule an appointment . Thank you. 2023 024 [email or web address] [facility], [address], [place], [address], 4 08:50:38 occupationa l therapist referral - Please schedule pt for R hand. thanks 2022 023 [email or web address] [facility], [address], [address], [place], [address], 3 17:10:59 cardiologis t referral 2022 023 Thom Caseyley, [address], [address], [place], [address], 3 20:16:39 physical therapist referral - *Please call patient to schedule* 2022 [email or web address] [place] [address] (Outpatient Physical Therapy), [address], [place], [address], 3 09:22:51 Procedures None recorded. Surgeries None recorded. Imaging None recorded. Medication Orders None recorded. Patient TargetsNo targets recorded. Patient InstructionsNo instructions recorded. Reason for Referral Physical Therapist Referral for Thoracic outlet syndrome *Please call patient to schedule* Referring Physician: Laury Markham, Family Medicine, Encounter Date: 11/12/2022 Labor Relations Consultant Referral for He art murmur Referring Physician: Laury Markham Family Medicine, Encounter Date: 11/12/2022 Occupational Therapist Refer ral for Pain in right hand R hand Please schedule pt for R hand. thanks Referring Physician: Sandy Raygoza, Orthopedic Surgery, Encounter Date: 01/13/2023 Wireline Field Operator Referral for Marielena uptipelena benign melanocytic nevi Did sunburn as a teen , please eval and treat prn. Please call patient to schedule an appointment. Thank you. Referring Physician: Rohit Rivero, Family Medicine, Encounter Date: 01/13/2024 Results Created Date Observation Date Name Description Value Unit Range Abnormal Flag Note LastModifiedBy Organization Detail LastModifiedTime 03/16/20 24 03/16/2024 rapid strep group A, throa t STREP A negati ve Not Available [facility]_[address], [place], [address], 03/16/2024 15:42:56 10/19/19 23 10/18/2022 imagi ng/di agnos tic resul t No observ ation record ed. [address], [place], [address], 10/19/2022 12:26:40 12/06/19 23 12/05/2022 XR, wrist No observ ation record ed. [address] [place], [address], 12/11/2022 09:14:10 04/29/20 23 04/29/2023 MAMMO , scree josselin, digit al, bilat eral No observ ation record ed. [email or web address] [facility] [address] [place], [address], 05/03/2023 12:23:56 10/09/19 24 10/09/2023 XR, entir e spine No observ ation record ed. [email or web address] [facility] [address] [place], [address], 10/14/2023 10:49:49 11/25/19 24 11/25/2023 MAMMO , scree josselin, digit al, bilat eral No observ ation record ed. [email or web address] [facility] [address], [place], [address], 11/26/2023 10:18:38 Result Notes None recorded. Problems Name Problem SNOMED Code Status Onset Date Resolution Date Notes Provider Name and Address Organization Details Recorded Time Tendinitis of right foot 5973773757970 9107 Active 2022 Not Available [facility] 3 08:30:03 Right Achilles tendinitis 0518778432739 02 Active 2022 Not Available [facility] 3 08:30:03 Pain of left hand 1094756471627 03 Active 2021 Not Available [facility] 3 08:30:03 Pain in right foot 9237353501276 07 Active 2021 Not Available [facility] 3 08:30:03 Vitamin D deficiency 24151059 Active 2020 Not Available [facility] 3 08:30:04 Neuropathy 348857888 Active Not Available [facility] 3 08:30:04 Pain of breast 29867932 Active Not Available [facility] 3 08:30:04 Upper respirator y infection 69069493 Active Not Available [facility] 3 08:30:04 Irregular periods 95668243 Active Not Available [facility] 3 08:30:04 Palpitatio ns 71183697 Active Not Available [facility] 3 08:30:04 Fatigue 81456645 Active Not Available [facility] 3 08:30:04 Epilepsy 33374395 Active Not Available [facility] 3 08:30:04 Thoracic outlet syndrome 197342974 Active 2022 Not Available [facility] 3 08:30:03 Heart murmur 10103825 Active 2022 Not Available [facility] 3 08:30:04 Injury of finger 64627217 Active 2022 Not Available [facility] 3 08:30:04 Pain in right hand 9686521371883 09 Active 2022 Not Available [facility] 3 08:30:04 Multiple benign melanocyti c nevi 954865482 Active 2023 TADEO Segovia [address], [address], [place], [address] , [facility] [employer] [facility] 4 15:57:44 Adult health examinatio n Active 2023 TADEO Segovia [address], [address], [place], [address] , [facility] [email or web address] 4 11:14:26 Sore throat 894417847 Active 2023 Jacki Adames RN null, [facility] [employer] [facility] 4 15:43:04 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 Procedures Surgical History Date Name Laterality Status Provider Name and Address Organization Details Recorded Time section completed Not Available [facility] 09/02/2022 08:44:05 Knee Surgery completed Not Available [facility] 09/02/2022 08:44:05 Imaging Results Imaging Date Name Status LastModified by Organiz ation Details LastModified Time 10/18/2022 imaging/diagno stic result completed [place] [address] [facility] [address], [place], [address], 10/19/2022 12:26:40 12/05/2022 XR, wrist completed [address] [place], [address], 12/11/2022 09:14:10 04/29/2023 MAMMO, screening, digital, bilateral completed [email or web address] [facility] [address] [place], [address], 05/03/2023 12:23:56 10/09/2023 XR, entire spine completed [email or web address] [facility] [address] [place], [address], 10/14/2023 10:49:49 11/25/2023 MAMMO, screening, digital, bilateral completed [email or web address] [facility] [address], [place], [address], 11/26/2023 10:18:38 Procedure Notes None recorded. Medical Equipment None Reported. Medications Name Sig Start Date Stop Date Status Note LastModified by Organization Details LastModified Time cyclobenzap rine 10 mg tablet Take 1 tablet every day by oral route at bedtime. active Not Available Not Available No t Available azithromyci n 250 mg tablet Take 2 TABLET EVERY DAY by oral route for 1 day. Than 1 tablet for 4 days active Not Available Not Available No t Available Lidocaine Viscous 2 % mucosal solution USE ONE TEASPOONF UL (5 ML) BY MOUTH DIRECTED FIVE TIMES DAILY. 06/10 completed Not Available Not Available Not Available metronidazo le 0.75 % (37.5 mg/5 gram) vaginal gel active Not Available Not Available Not Available prednisone 20 mg tablet TAKE 3 TABLETS BY MOUTH ONCE DAILY FOR 5 DAYS active Not Available Not Available No t Available ciprofloxac in 500 mg tablet 03/26 completed Not Available Not Available Not Available sulfamethox azole 800 mg-trimetho prim 160 mg tablet Take 1 tablet every 12 hours by oral route for 7 days. active Not Available Not Available No t Available omeprazole 40 mg capsule,del ayed release Take 1 capsule every day by oral route. active Not Available Not Available No t Available tramadol 50 mg tablet Take 1 tablet every 6 hours by oral route. 02/28 completed Not Available Not Available Not Available triamcinolo ne acetonide 0.1 % topical cream APPLY A THIN LAYER TO THE AFFECTED AREA(S) TWICE DAILY active Not Available Not Available No t Available alprazolam 0.5 mg tablet take 1 prior to fy active Not Available Not Available No t Available amoxicillin 875 mg tablet 02/28 completed Not Available Not Available Not Available methocarbam ol 750 mg tablet 04/05 completed Not Available Not Available Not Available desonide 0.05 % topical ointment APPLY OINTMENT TOPICALLY TO AFFECTED AREA TWICE DAILY 11/12 completed Not Available Not Available Not Available neomycin-po lymyxin-dex ameth 3.5 mg/mL-10,00 0 unit/mL-0.1 % eye drops INSTILL 1 DROP 4 TIMES DAILY INTO EACH EYE FOR 7 DAYS 06/10 completed Not Available Not Available Not Available triamcinolo ne acetonide 0.1 % topical ointment APPLY OINTMENT TOPICALLY EVERY 12 HOURS NEEDED 03/11 completed Not Available Not Available Not Available nystatin 100,000 unit/gram topical cream APPLY TO THE AFFECTED AREA(S) BY TOPICAL ROUTE 2 TIMES PER DAY active Not Available Not Available No t Available clotrimazol e-betametha sone 1 %-0.05 % topical cream APPLY TO THE AFFECTED AND SURROUNDI NG AREAS OF SKIN BY TOPICAL ROUTE 2 TIMES PER DAY IN THE MORNING AND EVENING FOR 2 WEEKS active Not Available Not Available No t Available polymyxin B sulfate 10,000 unit-trimet hoprim 1 mg/mL eye drops INSTILL 1 DROP INTO EACH EYE EVERY 3 HOURS DIRECTED WHILE AWAKE FOR 7 DAYS 06/10 completed Not Available Not Available Not Available diclofenac sodium 75 mg tablet,madonna yed release Take 1 tablet twice a day by oral route as directed for 30 days. 11/12 completed Not Available Not Available Not Available codeine 10 mg-guaifene sin 100 mg/5 mL oral liquid TAKE 5 ML BY MOUTH EVERY 4 TO 6 HOURS NEEDED 11/12 completed Not Available Not Available Not Available ergocalcife rol (vitamin D2) 1,250 mcg (50,000 unit) capsule TAKE 1 CAPSULE BY MOUTH ONCE A WEEK active Not Available Not Available No t Available Transderm-S senior marketing associate 1 mg over 3 days transdermal patch APPLY ONE PATCH AND CHANGE EVERY 72 HOURS. 04/05 completed Not Available Not Available Not Available methylpredn isolone 4 mg tablets in a dose pack 04/05 completed Not Available Not Available Not Available fluticasone propionate 50 mcg/actuati on nasal spray,suspe nsion 04/05 completed Not Available Not Available Not Available clotrimazol e 1 % topical cream active Not Available Not Available Not Available amoxicillin 875 mg-potassiu m clavulanate 125 mg tablet TAKE 1 TABLET BY MOUTH EVERY 12 HOURS FOR 10 DAYS 11/12 completed Not Available Not Available Not Available nitrofurant oin monohydrate /macrocryst als 100 mg capsule TAKE 1 CAPSULE BY MOUTH EVERY 12 HOURS 05/06 completed Not Available Not Available Not Available Vitals Date Recorded Body mass index (BMI) Body height Oxygen saturation Oxygen saturation in Arterial blood by Pulse oximetry Heart rate Respiratory rate Body temperature Body weight Systolic blood pressure Diastolic blood pressure Provider Name and Address Organization Details Last Updated DateTime 3 21 kg/m2 157.48 cm 98 % 98 % 69 /min 12 /min 97.9 [degF] 83229.1 2 g 120 mm[Hg] 76 mm[Hg] Not Available [facility] 3 08:44:24 Date Recorded Body height Body mass index (BMI) Body weight Body temperature Heart rate Oxygen saturation Oxygen saturation in Arterial blood by Pulse oximetry Systolic blood pressure Diastolic blood pressure Provider Name and Address Organization Details Last Updated DateTime 3 157.48 cm 20.9 kg/m2 69581.5 3 g 98.1 [degF] 96 /min 98 % 98 % 100 mm[Hg] 68 mm[Hg] Leslie Cárdenas [facility] [employer] [facility] [employer] 3 11:14:42 Date Recorded Body height Body mass index (BMI) Body weight Provider Name and Address Organization Details Last Updated DateTime 01/13/2023 157.48 cm 21.9 kg/m2 05240.08 g Barbara Guido [facility] [employer] [facility] [employer] 01/13/2023 11:26:44 Date Recorded Body height Body mass index (BMI) Body weight Body temperature Heart rate Oxygen saturation Oxygen saturation in Arterial blood by Pulse oximetry Systolic blood pressure Diastolic blood pressure Provider Name and Address Organization Details Last Updated DateTime 4 157.48 cm 20 kg/m2 55714.3 7 g 98.2 [degF] 87 /min 98 % 98 % 94 mm[Hg] 62 mm[Hg] Toshia Falcon MA [employer] 4 15:38:48 Social History Question Answer Notes LastModified by Organizat ion Details LastModified Time Tobacco Smoking Status Never Smoker Not Available [facility] 09/02/2022 08:43:49 What Is Your Level Of Alcohol Consumption? None [id number] Information not available 09/02/2022 If You Are , What Was Your Level Of Alcohol Consumption Prior To ? None [id number] Information not available 09/02/2022 In The 14 Days Before Symptom Onset, Have You Had Close Contact With A Laboratory-confirm ed COVID-19 While That Case Was Ill? No [id number] Information not available 09/02/2022 In The 14 Days Before Symptom Onset, Have You Had Close Contact With A Person Who Is Under Investigation For COVID-19 While That Person Was Ill? No [id number] Information not available 09/02/2022 What Type Of Diet Are You Following? REGULAR [id number] 026 Information not available 09/02/2022 What Was The Date Of Your Most Recent Tobacco Screening? 01/13/2023 [email or web address] Information not available 01/13/2023 Do You Use Any Illicit Or Recreational Drugs? No [id number] 026 Information not available 09/02/2022 Has Tobacco Cessation Counseling Been Provided? No [id number] Information not available 09/02/2022 Have You Recently Traveled Abroad? No [id number].[id number] 026 Information not available 09/02/2022 Do You Have Any Dietary Restrictions? No [id number] 026 Information not available 09/02/2022 Do You Or Have You Ever Used Any Other Forms Of Tobacco Or Nicotine? No [id number] 026 Information not available 09/02/2022 Sex: Unknown Functional Status Question Answer Note LastModified by Organizat ion Details LastModified Time What is your exercise level? Heavy [id number] Information not available 09/02/2022 Mental Status None recorded. Family History Relationship Description Onset Age of this Age Resolved Age Notes LastModified by Organization Details LastModified Time Father Family history of malignant neoplasm [id number] Not available 09/02/2022 08:44:05 Unspecified Relation Heart disease grandf ather [id number] Not available 09/02/2022 08:44:06 Medical History Condition Response DIABETES, TYPE Y Gynecological History Statement/Question Response Dislike of Light during Menstrual Headac he N Menses Monthly Y Abnormal Pap N Current Control Method None Obstetrics History GPAL:G 0 P 0 0 0 0 Past Encounters Encounter ID Performer Location Encounter Start Date Encounter Closed Date Diagnosis/Indication Diagnosis SNOMED-CT Code Diagnosis ICD10 Code Diagnosis Note [id number] [facility] Betty avila [address] , [place] [address] 03/31/2021 00:00:00 03/31/2021 21:40:42 [id number] [facility] [place] [address] [place] [address] 06/10/2021 00:00:00 06/10/2021 16:46:57 [id number] [facility] [place] [address] , [place] [address] 06/17/2021 00:00:00 06/18/2021 06:04:14 [id number] [facility] [place] [address] [place] [address] 07/09/2021 00:00:00 07/09/2021 16:47:56 [id number] [facility] [place] [address] , [place] [address] 10/21/2021 00:00:00 10/21/2021 10:25:39 [id number] [facility] [place] [address] [place] [address] 11/18/2021 00:00:00 11/18/2021 16:38:25 [id number] [facility] [place] [address] [place] [address] 02/12/2022 00:00:00 02/12/2022 12:31:34 [id number] [facility] [place] [address] , [place] [address] 03/11/2022 00:00:00 03/12/2022 06:11:30 [id number] [facility] [place] [address] , [place] [address] 03/18/2022 00:00:00 03/18/2022 12:56:21 [id number] [facility] [place] [address] [place] [address] 04/27/2022 00:00:00 04/27/2022 15:15:13 [id number] [facility] [place] [address] [place] [address] 06/17/2022 00:00:00 06/17/2022 12:35:18 [id number] [facility] [place] [address] [place] [address] 07/13/2022 00:00:00 07/29/2022 16:19:54 [id number] Laury Markham MD [facility] [place] [address] [place] [address] 11/12/2022 11:07:47 11/12/2022 11:46:38 Thoracic outlet syndrome 443728372 G54.0 Heart murmur 14079230 R0 1.1 [id number] Sandy Raygoza NP [facility] [place] [address] [place] [address] 01/13/2023 11:15:32 01/13/2023 12:03:43 Pain in right hand 0188774845 37100 M79.747 [id number] TADEO Segovia [facility] [place] [address] [place] [address] 01/13/2024 15:28:34 01/13/2024 16:02:23 Multiple benign melanocytic nevi 750556536 D22.9 Neuropathy 299505375 G62 .9 Epilepsy 42870241 G40.90 9 Vitamin D deficiency 347 94451 E55.9 Adult heal th examination 369959296 Z00.00 [id number] TADEO Segovia [facility] [place] [address] [place] [address] 03/16/2024 15:18:21 03/17/2024 16:23:24 Sore throat 005835777 J02.9 Health Concerns Section Related Observation LastModified by Organization Detai ls LastModified Time None Recorded Concern Status LastModified by Organization Details LastModified Time None Recorded Advance Directives Directive None Recorded Payers Encounter Date Sequence Insurance Name Policy Number Policy Melton Covered Member ID Melton Member ID Guarantor Name 11/12/2022 1 [facility] ON OR AFTER 01/02/21 (MEDICAID REPLACEMENT - HMO) Fidelina Castaneda [id number] Fidelina Castaneda 01/13/2023 1 [facility] ON OR AFTER 01/02/21 (MEDICAID REPLACEMENT - HMO) Fidelina Castaneda [id number] Fidelina Castaneda 01/13/2024 1 [facility] ON OR AFTER 01/02/21 (MEDICAID REPLACEMENT - HMO) Fidelina Castaneda [id number] Fidelina Castaneda 03/16/2024 1 [facility] ON OR AFTER 01/02/21 (MEDICAID REPLACEMENT - HMO) Fidelina Castaneda [id number] Fidelina Castaneda Notes Date Note Type Note Provider Name and Address Organization Details Recorded Time 11/12/2022 text/html Here today for f/u of hospitalization . Had numbness of right arm. Had chest pains. Went to ER and had ECG. Has a heart murmur and needs to see a penciller. If walks right hand will go numb and will turn blue. Has TOS. Laury Markham MD [address], [place], [address], [employer] 11/12/2022 20:12:44 01/13/2024 text/html no changes , does have a few moles , she'd like removed. She did sunburn as a teen TADEO Segovia [address], [place], [address], [employer] 02/06/2024 11:15:40 OBGyn Episode No OBEpisode recorded.
--- OUTSIDE RECORDS SUMMARY | 2024-10-17 17:08 | XMS_ITS | Encounter Summary ---
Author Organization [facility] Healthcare Address [address] [place] [address] Care Team Providers Care Salesperson [employer] Tra[employer] Accessories Name Role Phone Unavailable Primary Care Provider Unavailabl e Reason for Visit * Diagnostic Imaging (Routine) - Closed Specialty Diagnoses / Procedures Referred By Contac t Referred To Contact Procedures Breast Imaging Diagnostic Outside Reference Tricia Barreto MD PhD [id number] [place] [address] Phone: tel: fax: Referral ID Status Reason Start Date Expiration Date Visits Re quested Visits Authorized [id number] Closed 05/25/2022 06/24/2023 1 1 Encounter Details Date Type Department Care Team (Late st Contact Info) Description 08/18/2019 12:05 AM STAVE CUTTING SUPERVISOR Hospital Encounter [facility] [address] [place] [id number] Social History Tobacco Use Types Packs/Day Years [...] on file Legal Sex Female 1:13 AM STAVE CUTTING SUPERVISOR Gender Identity Not on file Sexual Orientation [...] BREAST IMAGING MG DIAGNOSTIC OUTSIDE REFERENCE Routine 08/18/2019 12:05 AM STAVE CUTTING SUPERVISOR documented in this encounter Results * Breast Imaging Diagnostic Outside Reference (08/18/2019 12:05 AM STAVE CUTTING SUPERVISOR) Impressions [facility] - 05/25/2022 1:09 PM STAVE CUTTING SUPERVISOR These images are for Reference purposes only and have not been reviewed by [facility]. There will be no report generated by a [facility]iologist. Narrative [facility] - 05/25/2022 1:09 PM STAVE CUTTING SUPERVISOR EXAMINATION: Images For Reference Purposes Only us Tricia Barreto MD PhD IMG MAMMO PROCEDURES Final Result [facility] documented in this encounter Visit Diagnoses Not on filedocumented in this encounter
--- OUTSIDE RECORDS SUMMARY | 2024-10-17 17:08 | XMS_ITS | Encounter Summary ---
Author Organization [facility] Healthcare Address [address] [place] [address] Care Team Providers Care Confectionery Drops Machine Operator Name Role Phone Unavailable Primary Care Provider Unavailabl e Reason for Visit * Diagnostic Imaging (Routine) - Closed Specialty Diagnoses / Procedures Referred By Contac t Referred To Contact Procedures Breast Imaging Diagnostic Outside Reference Tricia Barreto MD PhD [id number] [place] [address] Phone: tel: fax: Referral ID Status Reason Start Date Expiration Date Visits Re quested Visits Authorized [id number] Closed 05/25/2022 06/24/2023 1 1 Encounter Details Date Type Department Care Team (Late st Contact Info) Description 12/15/2018 Hospital Encounter [facility] [address] [place] [id number] Social History Tobacco Use Types Packs/Day Years [...] on file Legal Sex Female 1:13 AM VEHICLE OPERATOR Gender Identity Not on file Sexual [...] BREAST IMAGING MG DIAGNOSTIC OUTSIDE REFERENCE Routine 12/15/2018 12:00 AM CDT documented in this encounter Results * Breast Imaging Diagnostic Outside Reference (12/15/2018 12:00 AM CDT) Impressions [facility] - 05/25/2022 1:08 PM VEHICLE OPERATOR These images are for Reference purposes only and have not been reviewed by [facility]. There will be no report generated by a [facility] Radiologist. Narrative [facility] - 05/25/2022 1:08 PM VEHICLE OPERATOR EXAMINATION: Images For Reference Purposes Only us Tricia Barreto MD PhD IMG MAMMO PROCEDURES Final Result [facility] documented in this encounter Visit Diagnoses Not on filedocumented in this encounter
== END 2024-10-17 16:57 | disposition home or self-care (01) ==
DX: R59.0 Localized enlarged lymph nodes (principal)
CPT/HCPCS: 76536

== ENCOUNTER 2024-12-15 13:00 | Outpatient (RCR) | payer OTHER, SELFPAY ==
--- NOTE | 2024-10-10 11:18 | OPREHPOC ---
Outpatient Therapy Plan of Care This is a Multidisciplinary Plan of Care that may contain components documented by all disciplines (PT, OT, and ST.) PT Problem 1 PT Problem #1 Knowledge Deficit PT Goal 1 Goal / Goal Update Indepenence with HEP Target Visit 4 PT Goal 2 Goal / Goal Update Report no pain greater than 2/10 for 2 consecutive weeks Target Visit 8 PT Problem 2 PT Problem #2 Impaired Strength PT Goal 1 Goal / Goal Update 1. Improve right shoulder external rotation strength to 5/5 to improve capsular stabilization of humeral head 2. Improve trish periscapular strength to 4+/5 to improve scapular stabilization for active shoulder motion 3. Improve R shoulder flexion strength to 4+/5 to improvre objective lifting with ADL performance Target Visit 8 PT Problem 3 PT Problem #3 Impaired Functional Mobility PT Goal 1 Goal / Goal Update Report 75% reduction in radicular elbow symptoms Target Visit 8
--- NOTE | 2024-10-10 11:19 | PTOPEVAL1 ---
Assessment and note entered by Malachi Klein, PT Evaluation Information Assessment Status Evaluation Diagnosis G54.0 Neurogenic Thoracic Outlet Syndrome Onset 2021 Subjective Information Reports that she has done therapy in the past for TOS. Reports that this has been a chronic issue and she has elected to not go forward with surgery at this time. She notes Right elbow pain as well and gets pinching motion in the elbow. When she walks and the right arm is not fixated she gets a lot of elbow pain as well. Any overhead activity causes her pain. She also gets pain with reaching across her body. She has done nerve conduction testing as well. She is right hand dominant and all of her issues are on the right side. Reported Pain Level Pain Score 2: Self Report Assessment PT Clinical Summary Patient presents with signs and symptoms consistent with thoracic outlet syndrome. Demonstrate significant postural weakness noted in periscapular muscles and external rotation of cuff. Patient will benefit from skilled therapy to address these deficits for improved shoulder girdle tone and strengthening. We will avoid pain and radiation provocation. Plan of Care Interventions Electrical Stimulation,Manual Therapy,Neuro Re- education,Therapeutic Activities,Therapeutic Exercise PT Services Indicated Yes Treatment Frequency and 2x/week for 8 visits Duration These treatments will address the objective and functional deficits as defined above. The patient will be advanced safely and appropriately in order for the patient to progress towards his/her prior level of function. Additional exercises will be introduced and as well as a comprehensive home exercise program upon discharge, if needed, ?to ensure carryover of functional gains achieved in the clinic. This treatment plan has been reviewed and agreement upon by the patient.
--- NOTE | 2024-10-24 12:30 | PCPTNOTE ---
Patient rescheduled appointment for this date.
--- NOTE | 2024-11-20 07:18 | OPREHPOC ---
Outpatient Therapy Plan of Care This is a Multidisciplinary Plan of Care that may contain components documented by all disciplines (PT, OT, and ST.) PT Problem 1 PT Problem #1 Knowledge Deficit PT Goal 1 Goal / Goal Update Indepenence with HEP Target Visit 4 Progress Met PT Goal 2 Goal / Goal Update Report no pain greater than 2/10 for 2 consecutive weeks Target Visit 8 Progress Partially Met PT Problem 2 PT Problem #2 Impaired Strength PT Goal 1 Goal / Goal Update 1. Improve right shoulder external rotation strength to 5/5 to improve capsular stabilization of humeral head 2. Improve trish periscapular strength to 4+/5 to improve scapular stabilization for active shoulder motion 3. Improve R shoulder flexion strength to 4+/5 to improvre objective lifting with ADL performance 11/17/24 -Improved in each, but still short of goal currently Target Visit 8 Progress Partially Met PT Problem 3 PT Problem #3 Impaired Functional Mobility PT Goal 1 Goal / Goal Update Report 75% reduction in radicular elbow symptoms Target Visit 8 Progress Partially Met
--- NOTE | 2024-11-20 07:18 | PTOPPROG ---
Assessment and note entered by Malachi Klein, PT Evaluation Information Assessment Status Progress Diagnosis G54.0 Neurogenic Thoracic Outlet Syndrome Onset 2021 Subjective Information Reports that overall, she has been very active over the past couple of days. She still has pain in her elbow but pain is no longer having pain in the neck. She is also having some of the pain under her right shoulder blade at the spine and tip of scapula. She does not necessarily feel stronger but she does not fatigue as fast with activity. Feels that posturally she can sit up straighter for longer. Mehoopany some relief today with core activation activity. Assessment PT Clinical Summary Patient reports that overall she has seen some progression and some regression as well. She is still having the elbow pain that brought her to therapy. At this point she is continuing to show signs and symptoms of scapular dyskinesia and we began emphasizing more periscapular and core activation activity and it appears that she would continue to benefit from that moving forward she reflected some relief post treatment. Will continue to benefit form skilled therapy to address functional deficits. Plan of Care Interventions Electrical Stimulation,Manual Therapy,Neuro Re- education,Therapeutic Activities,Therapeutic Exercise PT Services Indicated Yes Treatment Frequency and 1x/week for 4 visits Duration These treatments will address the objective and functional deficits as defined above. The patient will be advanced safely and appropriately in order for the patient to progress towards his/her prior level of function. Additional exercises will be introduced and as well as a comprehensive home exercise program upon discharge, if needed, ?to ensure carryover of functional gains achieved in the clinic. This treatment plan has been reviewed and agreement upon by the patient.
--- NOTE | 2024-12-15 16:44 | PTOPDC ---
Assessment and note entered by Malachi Klein, PT Evaluation Information Assessment Status Discharge Diagnosis G54.0 Neurogenic Thoracic Outlet Syndrome Onset 2021 Subjective Information Reports that since she started with her new exercise approach with spinal mobility and core integration she has been seeing improvement in her pain and comfortability with posture. Reported Pain Level Pain Score 2,1: Self Report Assessment PT Clinical Summary Patient has defined a very positive exercise program to promote thoracic mobility and postural stability. Emphasis has been on postural isometric strengthening as she has not been tolerant to isotonic strengthening at this point without pain. Exercise were reviewed including anatomy and patent will continue in spinal mobilization and stabilization for fci strengthening progression. Independent and compliant with HEP. Plan of Care PT Services Indicated Yes
--- NOTE | 2024-12-15 16:45 | PTOPDC ---
Assessment and note entered by Malachi Klein, PT Evaluation Information Assessment Status Discharge Diagnosis G54.0 Neurogenic Thoracic Outlet Syndrome Onset 2021 Subjective Information Reports that since she started with her new exercise approach with spinal mobility and core integration she has been seeing improvement in her pain and comfort with posture. Reported Pain Level Pain Score 2,1: Self Report Assessment PT Clinical Summary Patient has defined a very positive exercise program to promote thoracic mobility and postural stability. Emphasis has been on postural isometric strengthening as she has not been tolerant to isotonic strengthening at this point without pain. 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 Independent and compliant with HEP. Plan of Care PT Services Indicated Yes
== END 2024-12-18 08:55 | disposition home or self-care (01) ==
LOC: ANHGOSHPT 13:00
PROVIDERS: PCP Family Medicine
DX: M54.00 Panniculitis affecting regions of neck and back, site unspecified (principal)
CPT/HCPCS: 76536; 97110; 97140; 97161; 97530